=== PATIENT | female | born 1950 | race Caucasian/White ===

== ENCOUNTER 2017-01-12 09:35 | Inpatient (IN) ==
[2017-01-12] MEDS ORDERED: Aspirin 81 MG TAB.CHEW PO ONE (09:44)
--- NOTE | 2017-01-12 09:50 | Emergency Department Note ---
Disposition Clinical Impression: Elevated troponin Chest pain Qualifiers: Chest pain type: unspecified Qualified Code(s): R07.9 - Chest pain, unspecified Disposition: Admitted As Inpatient Condition: Good Referrals: NONE,PCP [Primary Care Provider] - Forms: ED Satisfaction Letter Time of Disposition: 10:26 Chest Pain HPI - General Chief Complaint: ED Chest Pain Stated Complaint: Chest Pain Time Seen by Provider: 01/12/17 09:43 Source: patient Mode of arrival: ambulatory Limitations: no limitations Vital Signs Reviewed: Yes Nursing Notes Reviewed: Yes - History of Present Illness HPI Narrative: Patient presents to emergency room with complaint of chest pain radiating up into the left neck. Denies any other symptoms or complaints. 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 Review of Systems: As Per HPI Constitutional: Denies: fever, chills Cardiovascular: Reports: chest pain. Denies: palpitations, dyspnea on exertion , orthopnea, edema Respiratory: Denies: cough, dyspnea, wheezes, hemoptysis Gastrointestinal: Denies: abdominal pain, nausea, vomiting, diarrhea Genitourinary: Denies: urgency, dysuria Musculoskeletal: Denies: back pain, neck pain Neurological: Denies: headache, weakness Chest Pain PMH - Past Medical History Medical history: Reports: hyperlipidemia, hypertension, thyroid disease Psychiatric history: Reports: depression - Social History Smoking Status: Current every day smoker Alcohol use: Reports: none Drug use: Reports: none Physical Exam - General Limitations: no limitations General appearance: alert - Head Head exam: atraumatic, normocephalic, normal inspection - ENT ENT exam: normal exam, normal oropharynx, mucous membranes moist - Neck Neck exam: Present: normal inspection, full ROM, trachea midline - Chest Chest inspection: Present: normal inspection, symmetric chest wall rise. Absent : tenderness - Respiratory Respiratory exam: Present: normal lung sounds bilaterally - Cardiovascular Cardiovascular exam: Present: regular rate, normal rhythm, normal heart sounds - Abdominal Exam Abdominal exam: Present: soft, Non-Tender, normal bowel sounds. Absent: tenderness, distention, guarding, rebound, rigidity - Extremities Exam Extremities exam: Present: normal inspection, full ROM, normal capillary refill. Absent: tenderness - Back Exam Back exam: Present: normal inspection, full ROM. Absent: tenderness - Skin Skin exam: Present: warm, dry, intact, normal color Course Course Narrative: Patient seen and examined the time of arrival. See history of present illness. 66-year-old female presents with chest pain yesterday that went away and came on again last night has been persistent since then. She has risk factors including hypertension hyperlipidemia and thyroid disease. She also has concerning symptoms with midsternal chest pain radiating up into the neck. Vital signs on presentation show a normal heart rate blood pressure is significantly elevated. Physical exam is otherwise benign. Head is atraumatic pupils are equal round and reactive to light. Patient has no pain with movement of the neck oropharynx is patent is midline she has mild cervical lymphadenopathy. Nontender and mobile. Thyroid is not palpable on exam. Lungs are clear heart is regular abdomen soft nontender nondistended. She has no signs of pitting edema or swelling in the lower extremities. She follows commands appropriately and moves all fours extremities with purpose shows no acute signs of neurologic deficit. Patient is otherwise in no distress showing no acute signs of decompensation. Discussed in detail the patient's blood pressure as well as my recommendation for cardiac evaluation including EKG chest x-ray troponin laboratory workup control the blood pressure with aspirin and nitroglycerin and then most likely admission to hospital because of elevated blood pressure and symptom history. Patient understands this is comfortable with the plan. We will continue monitor history course is completed. We will discuss intervention and disposition. Patient does follow up with the automatic corn grinder operator but has not had a cardiac catheterization or stent completed in the past. - Reevaluation(s) Reevaluation #1: Patient was provided one nitroglycerin here. Her blood pressure came up to 175/ 111. Her troponin was called to the spinal abdomen is 2.36 here today. No comparable studies to review this to this time. I again reviewed the EKG showing no acute signs of ST segment elevation or depression there is no T-wave inversions. She does have possible LVH at this time. Morphology otherwise seems to be consistent with what is myocardial infarction most likely yesterday. She has Q waves in the inferior leads at this time. Disposition will be admission to hospital.. Reviewed with the on-call physician Dr. mckeon. We reviewed the medical history intervention and consultation with the automatic corn grinder operator. No other recommendations this time. Patient restarted on heparin drip. Chest pain is almost completely resolved with one nitroglycerin blood pressure is down to 175/111. Symptoms of almost completely resolved except for light pressure. Patient otherwise is in no distress. Rotation was placed out to Dr. Guaman on-call automatic corn grinder operator. No other recommendations except for admission for cardiac evaluation. Cardiology is at the bedside at this time evaluating the patient hospitalIST. Time: 10:40 Vital Signs Temperature 98 F 01/12/17 09:36 Pulse Rate 97 01/12/17 09:36 Respiratory Rate 18 01/12/17 09:36 Blood Pressure 213/126 01/12/17 09:36 O2 Sat by Pulse Oximetry 93 01/12/17 09:36 Temperature 98 F 01/12/17 09:36 Pulse Rate 94 01/12/17 10:36 Respiratory Rate 18 01/12/17 10:36 Blood Pressure 178/125 01/12/17 10:36 O2 Sat by Pulse Oximetry 97 01/12/17 10:36 Oxygen Delivery Oxygen Delivery Room Air Chest Pain - MDM Narrative Medical decision making narrative: Chest pain, hypertension - Medical Records Medical records reviewed: Yes I reviewed the patient's medical records. - Lab Data Lab results reviewed: Yes I reviewed the patient's lab results. Result diagrams: 01/12/17 08:52 01/12/17 08:52 Lab Results 01/12/17 01/12/17 01/12/17 Range/Units 08:52 08:52 08:52 WBC (4.3-11.1) K/mcL RBC (3.82-4.97) M/mcL Hgb (11.5-15.4) g/dL Hct (35.3-44.9) % MCV (83.0-100.0) fL MCH (28.0-33.3) pg MCHC (31.6-35.5) g/dL RDW (11.5-14.5) % Plt Count (140-400) K/mcL MPV (9.4-12.4) fL Immature Gran % (0-4) % Seg Neutrophils % % Lymphocytes % % Monocytes % % Eosinophils % % Basophils % % Neutrophils # (1.6-8.9) K/mcL Lymphocytes # (0.6-4.6) K/mcL Monocytes # (0.0-1.3) K/mcL Eosinophils # (0.0-0.6) K/mcL Basophils # (0.0-0.2) K/mcL PT 11.1 (9.4-12.1) Seconds INR 1.0 APTT 32.5 (26.0-36.0) Seconds Sodium 140 (136-145) mEq/L Potassium 3.8 (3.5-4.5) mEq/L Chloride 102 (98-109) mEq/L Carbon Dioxide 29 (19-29) mEq/L BUN 6 L (7-20) mg/dL Creatinine 0.71 (0.57-1.11) mg/dL Est GFR ( Amer) > 60 (> 60) Est GFR (Non-Af Amer) > 60 (> 60) BUN/Creatinine Ratio 8 (6-26) Glucose 96 (70-99) mg/dL Calculated Osmolality 287 (280-300) Calcium 10.0 (8.6-10.8) mg/dL Total Bilirubin 0.4 (0.2-1.2) mg/dL Direct Bilirubin 0.2 (0.0-0.5) mg/dL Indirect Bilirubin 0.2 (0.0-1.2) mg/dL AST 43 H (5-34) Units/L ALT 22 (0-55) Units/L Alkaline Phosphatase 90 (38-126) Units/L Troponin I (0-0.03) ng/mL B-Natriuretic Peptide 123 H (0-100) pg/mL Serum Total Protein 8.6 H (6.0-8.3) g/dL Albumin 4.3 (3.5-5.0) g/dL Globulin 4.3 H (2.4-3.5) g/dL Albumin/Globulin Ratio 1.0 L (1.1-2.2) 01/12/17 01/12/17 Range/Units 08:52 08:52 WBC 7.8 (4.3-11.1) K/mcL RBC 5.09 H (3.82-4.97) M/mcL Hgb 15.5 H (11.5-15.4) g/dL Hct 46.5 H (35.3-44.9) % MCV 91.4 (83.0-100.0) fL MCH 30.5 (28.0-33.3) pg MCHC 33.3 (31.6-35.5) g/dL RDW 12.3 (11.5-14.5) % Plt Count 273 (140-400) K/mcL MPV 9.0 L (9.4-12.4) fL Immature Gran % 0.4 (0-4) % Seg Neutrophils % 68.2 % Lymphocytes % 24.0 % Monocytes % 6.1 % Eosinophils % 0.9 % Basophils % 0.4 % Neutrophils # 5.3 (1.6-8.9) K/mcL Lymphocytes # 1.9 (0.6-4.6) K/mcL Monocytes # 0.5 (0.0-1.3) K/mcL Eosinophils # 0.1 (0.0-0.6) K/mcL Basophils # 0.0 (0.0-0.2) K/mcL PT (9.4-12.1) Seconds INR APTT (26.0-36.0) Seconds Sodium (136-145) mEq/L Potassium (3.5-4.5) mEq/L Chloride (98-109) mEq/L Carbon Dioxide (19-29) mEq/L BUN (7-20) mg/dL Creatinine (0.57-1.11) mg/dL Est GFR ( Amer) (> 60) Est GFR (Non-Af Amer) (> 60) BUN/Creatinine Ratio (6-26) Glucose (70-99) mg/dL Calculated Osmolality (280-300) Calcium (8.6-10.8) mg/dL Total Bilirubin (0.2-1.2) mg/dL Direct Bilirubin (0.0-0.5) mg/dL Indirect Bilirubin (0.0-1.2) mg/dL AST (5-34) Units/L ALT (0-55) Units/L Alkaline Phosphatase (38-126) Units/L Troponin I 2.36 H* (0-0.03) ng/mL B-Natriuretic Peptide (0-100) pg/mL Serum Total Protein (6.0-8.3) g/dL Albumin (3.5-5.0) g/dL Globulin (2.4-3.5) g/dL Albumin/Globulin Ratio (1.1-2.2) - Radiology Data Radiology results reviewed: Yes I reviewed the patient's radiology results. - EKG Data EKG attestation: Yes I reviewed and interpreted this EKG. Heart Score - Score History: Moderately Suspicious EKG: Normal Age: 45-65 Risk Factors: Equal/Greater than 3 risk factor or history of atherosclerotic disease Troponin: Greater than 3x normal limit HEART Score Total: 6 Critical Care Time Critical Care Time: Yes Total Critical Care Time: 35 Attestation: Critical care performed: Time is exclusive of separately billable procedures. Time includes: direct patient care, patient reassessment, coordination of patient care, interpretation of data (laboratory data, radiology data, and respiratory data), review of patient's medical records, medical consultation and documentation of patient care. Procedures included in critical care time: Procedures excluded from critical care time:
[2017-01-12 09:56] LABS: Basophils % 0.4 %; Eosinophils # 0.1 K/mcL (0.0-0.6); Eosinophils % 0.9 %; Hematocrit 46.5 % (35.3-44.9); Hemoglobin 15.5 g/dL (11.5-15.4); Immature Granulocytes % 0.4 % (0-4); Lymphocytes # 1.9 K/mcL (0.6-4.6); Mean Corpuscular HGB Conc 33.3 g/dL (31.6-35.5); Mean Corpuscular Hemoglobin 30.5 pg (28.0-33.3); Mean Corpuscular Volume 91.4 fL (83.0-100.0); Monocytes # 0.5 K/mcL (0.0-1.3); Monocytes % 6.1 %; Neutrophils # 5.3 K/mcL (1.6-8.9); Platelet Count 273 K/mcL (140-400); Red Blood Count 5.09 M/mcL (3.82-4.97); Red Cell Distribution Width 12.3 % (11.5-14.5); Segmented Neutrophils % 68.2 %
[2017-01-12] MEDS: Nitroglycerin 0.4 MG TAB.SUBL SL ONE ×2 (09:57→10:33)
[2017-01-12 10:06] LABS: Prothrombin Time 11.1 Seconds (9.4-12.1)
[2017-01-12 10:09] LABS: Activated Partial Thrombo Time 32.5 Seconds (26.0-36.0)
[2017-01-12 10:12] LABS: Alanine Aminotransferase 22 Units/L (0-55); Albumin 4.3 g/dL (3.5-5.0); Alkaline Phosphatase 90 Units/L (38-126); Aspartate Amino Transferase 43 Units/L (5-34); BUN/Creatinine Ratio 8 (6-26); Bilirubin,Direct 0.2 mg/dL (0.0-0.5); Bilirubin,Indirect 0.2 mg/dL (0.0-1.2); Bilirubin,Total 0.4 mg/dL (0.2-1.2); Blood Urea Nitrogen 6 mg/dL (7-20); Carbon Dioxide 29 mEq/L (19-29); Chloride 102 mEq/L (98-109); Globulin 4.3 g/dL (2.4-3.5); Glucose 96 mg/dL (70-99); Osmolality,Calculated 287 (280-300); Potassium 3.8 mEq/L (3.5-4.5); Sodium 140 mEq/L (136-145); Total Protein 8.6 g/dL (6.0-8.3); eGFR For African Americans > 60 (> 60); eGFR For Non-African Americans > 60 (> 60)
[2017-01-12] MEDS ORDERED: *HR* Heparin 5,000 UNIT/ML VIAL IVP ONE ×2 (10:19→10:43)
[2017-01-12] MEDS ORDERED: *HR* Heparin 5,000 UNIT/ML VIAL IVP PRN ×3 (10:19→10:43)
[2017-01-12] MEDS ORDERED: Heparin 25,000 UNIT/500 ML D5W 25,000 UNIT/500 ML MLS IVC SCH (10:30)
[2017-01-12] MEDS ORDERED: Naloxone 0.4 MG/ML INJ IVP PRN ×2 (10:43→10:49)
[2017-01-12] MEDS ORDERED: Ondansetron 4 MG/2 ML VIAL IVP PRN (10:43)
[2017-01-12] MEDS ORDERED: Nitroglycerin 0.4 MG TAB.SUBL SL PRN (10:43)
[2017-01-12] MEDS ORDERED: Acetaminophen 325 MG TABLET PO PRN (10:49)
[2017-01-12] MEDS ORDERED: Ipratropium/Albuterol Neb 3 ML IH PRN (10:50)
--- NOTE | 2017-01-12 10:53 | Event Note ---
Date of Encounter: 01/12/17 Time of Encounter: 10:51 1. Non-STEMI Continue aspirin, start metoprolol, nitro paste, morphine as needed, Lipitor Heparin drip, consider loading with Plavix if cardiology is in agreement follow troponins, telemetry Nothing by mouth for possible cardiac catheterization, may resume diet is cardiac catheterization is not scheduled for today 2. Hyperlipidemia 3. Accelerated hypertension in the 200s Start losartan, amlodipine, metoprolol, may use hydralazine IV as needed 4. Tobacco abuse. Smoking cessation counseling given for 5 minutes. Nicotine patch Omeprazole for GI prophylaxis and heparin drip for DVT prophylaxis. Patient will be admitted as inpatient. Expected to stay more than 2 midnights. Full code. Time spent on this admission 40 minutes. H&P to be completed by ANGELICA Collazo
[2017-01-12] MEDS ORDERED: *HR* Ticagrelor 90 MG TABLET PO ONE (10:54)
--- NOTE | 2017-01-12 11:04 | Cardiology Consult Note ---
Date of Encounter: 01/12/17 Time of Encounter: 10:58 Assessment and Plan (1) NSTEMI (non-ST elevated myocardial infarction) Current Visit: Yes Status: Acute Initial troponin 2.36. Trend for total of 3. CXR negative. Chest pain started yesterday, initially had brief episode at work that subsided , then recurred last night, left sided and achy that radiated up neck and across back/shoulder blades. Pain began decreasing around 8am, then further decreased to 1/10 after receiving 2 nitro in ED. Risk factors for CAD include HTN, HLD, tobacco abuse and family hx with half brother having from [place] in his 50s. Will check echo to evaluate structure and function. Recommend LHC. R/B/A discussed. Pt agrees to proceed with LHC today. Discussed with interventionalist, Dr. Villarreal. Will load with Brilinta 180mg now. On heparin gtt. BB and statin started. Check lipid panel in AM. (2) Tobacco abuse Current Visit: Yes Status: Chronic <1PPD since age 21. Smoking cessation counseling given. (3) Accelerated hypertension Current Visit: Yes Status: Acute BP 213/126 on presentation. 195/126 at bedside. Give dose of IV Hydralazine 10mg now. Oral antihypertensives started as well. Continue to monitor. Discussion w patient/family: The assessment and plan as outlined above was discussed with the patient and/or family members who expressed understanding and agreement. All questions were answered. Thank you for involving us in the care of your patient. Please call with any questions. I will discuss all the above with Dr. Pete Waters and make changes as necessary. History of Present Illness Consult date: 01/12/17 Requesting physician: Anirudh Rodríguez Consult reason: NSTEMI Chief complaint: Chest pain History of present illness: Ms. Oconnor is a 66 year old female with PMH of HTN, HLD, tobacco abuse, possible CVA hx reported in 1999 that presented to ED with chief complaint of chest pain. 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 Later yesterday evening once home, she experienced recurrent chest pain described as dull and achy that radiated to her neck and into her back across shoulder blades. She reports the pain was constant, started to become less intense around 8AM this morning, then improved with 2 nitro in the ED and is currently rated 1/10. BP 213/126 on presentation, 195/126 at bedside currently. She denies dyspnea or lower extremity edema. She denies prior cardiac hx. Reports having a stress test and echo many years ago. Reports her half brother from [place] in his 50s. She has smoked <1PPD since age 21. Troponin 2.36. Cardiology consulted for NSTEMI. Of note, pt has not seen PCP regularly or recently. Past Med Surg Social Fam HX - Past Medical History Medical history: CVA, hyperlipidemia, hypertension, thyroid disease Psychiatric history: depression - Social History Smoking Status: Current every day smoker Smokeless Tobacco Status: No Alcohol use: none Drug use: none - Family History Brother Age at : 50 Cause of : [place] Medications and Allergies Aspirin [Lo-Dose Aspirin EC] 81 mg PO DAILY 01/12/17 [History] Allergies No Known Allergies Allergy (Verified 01/12/17 09:41) All Systems Review: A 10-system review of systems was performed and is negative for pertinent findings except as documented above in the HPI. - Cardiovascular Cardiovascular: as per HPI, chest pain at rest, chest pain with exertion, radiating jaw, neck or arm pain Physical Examination Vital Signs Temp Pulse Resp BP Pulse Ox 01/12/17 10:36 94 18 178/125 97 01/12/17 10:24 87 18 175/112 96 01/12/17 09:36 98 F 97 18 213/126 93 Intake and Output 01/11/17 01/12/17 01/12/17 23:59 07:59 15:59 Other: Weight 72.756 kg Patient Weight 01/12/17 23:59 Weight 72.756 kg General: Conversant, No Apparent Distress HEENT: Atraumatic, Normocephaly, Mucus Membranes Moist Neck: No JVD, Normal carotid pulses Cardiac: Reg Rate and Rhythm, Normal S1 and S2, No Murmur Lungs: Normal Breath Sounds, No Wheeze, Rales, Rhonchi Neuro: Alert and responsive, No focal deficits noted Abdomen: Soft, Non-Tender Skin: No rashes noted on visualized skin Musculoskeletal: No Chest Wall Tenderness Extremities: No Clubbing, No Cyanosis, No Edema, Normal Pulses Results 01/12/17 08:52 01/12/17 08:52 Short CBC 01/12/17 Range/Units 08:52 WBC 7.8 (4.3-11.1) K/mcL Hgb 15.5 H (11.5-15.4) g/dL Hct 46.5 H (35.3-44.9) % Plt Count 273 (140-400) K/mcL Neutrophils # 5.3 (1.6-8.9) K/mcL BMP 01/12/17 Range/Units 08:52 Sodium 140 (136-145) mEq/L Potassium 3.8 (3.5-4.5) mEq/L Chloride 102 (98-109) mEq/L Carbon Dioxide 29 (19-29) mEq/L BUN 6 L (7-20) mg/dL Creatinine 0.71 (0.57-1.11) mg/dL Glucose 96 (70-99) mg/dL Calcium 10.0 (8.6-10.8) mg/dL Cardiac Enzymes 01/12/17 Range/Units 08:52 Troponin I 2.36 H* (0-0.03) ng/mL Liver Function 01/12/17 Range/Units 08:52 Total Bilirubin 0.4 (0.2-1.2) mg/dL Direct Bilirubin 0.2 (0.0-0.5) mg/dL AST 43 H (5-34) Units/L ALT 22 (0-55) Units/L Alkaline Phosphatase 90 (38-126) Units/L Albumin 4.3 (3.5-5.0) g/dL Impressions Chest X-Ray 01/12/17 09:44 IMPRESSION: No acute cardiopulmonary disease. D/ / Mychal Valenzuela MD / Mychal Valenzuela MD Interpreting Provider: Mychal Valenzuela MD Active Medications Acetaminophen (Tylenol) 500 mg PO Q6HR PRN PRN Reason: Mild Pain Stop: 07/14/17 10:44 Acetaminophen (Tylenol) 650 mg PO Q6HR PRN PRN Reason: Mild Pain (1-3) Stop: 07/14/17 10:50 Albuterol/Ipratropium (Duoneb) 3 ml IH [id number] PRN; Protocol PRN Reason: Shortness Of Breath/Wheezing Stop: 07/14/17 10:51 Amlodipine Besylate (Norvasc) 10 mg PO DAILY ADA PRN Reason: Protocol Stop: 07/14/17 11:01 Aspirin (Aspirin) 324 mg PO DAILY [facility] Stop: 07/14/17 10:46 Atorvastatin Calcium (Lipitor) 80 mg PO HS [facility] Stop: 07/14/17 21:01 Heparin Sodium (Porcine) (Heparin) 4,000 unit IVP Q6HR PRN PRN Reason: SEE COMMENTS Stop: 07/14/17 10:20 Heparin Sodium (Porcine) (Heparin) 2,000 unit IVP Q6H PRN PRN Reason: SEE COMMENTS Stop: 07/14/17 10:20 Heparin Sodium (Porcine) (Heparin) 4,000 unit IVP Q6HR PRN PRN Reason: SEE COMMENTS Stop: 07/14/17 10:44 Heparin Sodium (Porcine) (Heparin) 2,000 unit IVP Q6H PRN PRN Reason: SEE COMMENTS Stop: 07/14/17 10:44 Hydralazine HCl (Hydralazine) 20 mg IVP Q6HR PRN PRN Reason: Hypertension Stop: 07/14/17 10:55 Heparin Sodium/Dextrose (Heparin 25,000 Unit/500 Ml D5w) 25,000 unit in 500 mls @ 17.461 mls/hr IVC .Q24H ADA; 12 UNIT/KG/HR PRN Reason: Protocol Stop: 07/14/17 10:31 Last Admin: 01/12/17 10:31 Dose: 12 unit/kg/hr, 17.461 mls/hr Sodium Chloride (0.9 % Sodium Chloride) 1,000 mls @ 60 mls/hr IVC .[id number] ADA Stop: 07/14/17 10:46 Heparin Sodium/Dextrose (Heparin 25,000 Unit/500 Ml D5w) 25,000 unit in 500 mls @ 17.461 mls/hr IVC .Q24H ADA; 12 UNIT/KG/HR PRN Reason: Protocol Stop: 07/14/17 10:46 Losartan Potassium (Cozaar) 25 mg PO DAILY [facility] Stop: 07/14/17 10:46 Metoprolol Tartrate (Lopressor) 25 mg PO BID [facility] Stop: 07/14/17 10:46 Morphine Sulfate (Morphine Sulfate) 4 mg IVP Q3H PRN PRN Reason: Severe Pain (7-10) Stop: 07/14/17 10:44 Naloxone HCl (Narcan) 0.4 mg IVP Q2MIN PRN PRN Reason: Opioid Reversal Stop: 07/14/17 10:44 Naloxone HCl (Narcan) 0.4 mg IVP Q2MIN PRN PRN Reason: Opioid Reversal Stop: 07/14/17 10:50 Nicotine (Nicoderm) 21 mg TD DAILY [facility] PRN Reason: Protocol Stop: 07/14/17 10:46 Nitroglycerin (Nitroglycerin) 0.5 inch TP Q6HNTG ADA Stop: 07/14/17 12:01 Nitroglycerin (Nitroglycerin) 0.4 mg SL Q5MIN PRN PRN Reason: Chest Pain Stop: 07/14/17 10:44 Omeprazole (Prilosec) 20 mg PO DAILY@0630 [facility] PRN Reason: Protocol Stop: 07/15/17 06:31 Ondansetron HCl (Zofran) 4 mg IVP Q8HR PRN PRN Reason: Nausea And Vomiting Stop: 07/14/17 10:44 Ticagrelor (Brilinta) 180 mg PO NOW ONE Stop: 01/12/17 10:55 - EKG Interpretation EKG results cardiology: personally reviewed (SR) Consult Discharge Plan - Plan Referrals: NONE,PCP [Primary Care Provider] -
--- NOTE | 2017-01-12 11:21 | Internal Med History&Physical ---
<Lj Collazo - Last Filed: 01/12/17 11:58> Date of Encounter: 01/12/17 Time of Encounter: 10:15 Assessment and Plan (1) NSTEMI (non-ST elevated myocardial infarction) Current visit: Yes Status: Acute Patient presents with chest pain and abnormal EKG upon admission to the ED. Patient states that she has had stabbing pressure in her left chest that has become progressively worse. States that two rounds of nitroglycerin in the ED helped. Patient denies previous heart attacks but reports a stroke in 1999. Cardiology consulted and will perform a heart catheterization today. Patient to be NPO to prep for the procedure. Patient reports she stopped taking any medications three years ago due to expense. Orders for lipitor, losartan, amlodipine, lopressor, and hydralazine placed while inpatient. Patient to be monitored closely for signs of increasing cardiac/respiratory distress. (2) Accelerated hypertension Current visit: Yes Status: Acute Patient presents with accelerated HTN upon admission to the ED with initial BP of 213/126. BP during examination was 190/127. Patient states that she has a history of HTN but does not take BP at home. Losartan, amlodipine, lopressor, and hydralazine ordered to help control HTN. Patient and vital signs to be monitored. (3) Chest pain Current visit: Yes Status: Acute Patient presents with chief complaint of chest pain that she states started yesterday morning as a pressure with stabbing pain that radiated to her left jaw , left arm, and bilateral shoulder blades. Patient received two nitroglycerin upon admission that she states helped with the pain. Will continue nitroglycerin PRN as well as stair-step pain medications as needed. Qualifiers: Chest pain type: other chest pain Qualified Code(s): R07.89 - Other chest pain; R07.8 - Other chest pain (4) Elevated troponin Current visit: Yes Status: Acute Patient presents with elevated troponin level of 2.36 on admission to the ED. Will trend troponins x2. (5) HLD (hyperlipidemia) Current visit: Yes Status: Chronic Patient presents with history of chronic hyperlipidemia but is unsure of what her current lipid levels are. Lipid panel ordered. Lipitor ordered while inpatient. Qualifiers: Hyperlipidemia type: pure hypercholesterolemia Qualified Code(s): E78.00 - Pure hypercholesterolemia, unspecified; E78.0 - Pure hypercholesterolemia (6) Tobacco abuse Current visit: Yes Status: Chronic Patient reports smoking 1/2 PPD for the past 45 years. Smoking cessation education provided during examination with alternatives for quitting explained to patient who voiced understanding. Nicotine patch ordered while inpatient. (7) DVT prophylaxis Current visit: Yes Status: Acute Patient reports history of stroke in 1999 and is currently experiencing chest pain symptoms. Patient placed on IV heparin drip. Internal Medicine - H&P: HPI Chief complaint: Chest Pain Admitted From: Emergency Dept Plans for Post Hospital Care: Home History of present illness: Mrs. Oconnor is a 66 year old female who presents from the ED with chief complaint of chest pain that she states began yesterday morning and became progressively worse overnight. She states that the pain began with an irregular heart beat/flutter. She describes the chest pain as a pressure with stabbing which came and went earlier in the day and became more constant overnight. She reports the pain radiated to her left jaw, left arm, and across both shoulder blades. She states that the pain went away at approximately 8 a.m. today 1 hour prior to coming to the ED. She also reports nausea with the episodes but no vomiting. Mrs. Oconnor reports having a prior Echo and stress test done but that it has been quite some time ago. Her medical history includes HTN, HLD, thyroid disease, and a reported stroke in 1999. She denies any previous cardiac history. She is currently smoking approximately 1/2 PPD of cigarettes. She denies recent illness, chills, fever, headache, dizziness, changes in vision, abdominal pain, unusual bleeding, SOB, diarrhea, or syncope. Patient's blood pressure on admission to the ED was 213/126 and last BP taken during examination was 190/127. Patient is at high risk for cardiac event based on her current symptoms and risk factors/history of tobacco abuse, HTN, HLD, and reported previous stroke. She is to be placed as inpatient and will be scheduled for a heart catheterization as soon as she can be worked in. Cardiology on board and has seen the patient. Patient will be placed on continuous cardiac telemetry. Hydralazine 20 mg ordered for current HTN. Heparin drip initiated in the ED and will be continued. Patient is to be NPO for pending cath and will be monitored closely for signs of increasing cardiac/ respiratory distress. Past Med Surg Social Fam HX - Past Medical History Source: patient Medical history: CVA (Occurred in 1999), hyperlipidemia, hypertension, thyroid disease Psychiatric history: depression - Social History Smoking Status: Current every day smoker Packs per day: 1/2 PPD Smokeless Tobacco Status: No Alcohol use: none Drug use: none Current living situation: Home, With Family Activity Level: Independent ambulation, Very active Recent Out of Country Travel Within the Last 8 Weeks: No Exposure or Possible Exposure to Illness During Travel: No - Family History Brother Race: Family Member Ethnicity: Non- Living Status: Age at : 50 Cause of : [place] Hx Family Cardiac Disorders: Yes ([place]) Father History Unknown: Yes Mother Race: Family Member Ethnicity: Non- Living Status: Age at : 73 Cause of : Stroke Hx Family Cardiac Disorders: Yes (Multiple CVAs) Internal Medicine - H&P: Meds Aspirin [Lo-Dose Aspirin EC] 81 mg PO DAILY 01/12/17 [History] Allergies No Known Allergies Allergy (Verified 01/12/17 09:41) All Systems PM: A 10-system review of systems was performed and is negative for pertinent findings except as documented above in the HPI. - Constitutional Constitutional: no chills, no fever(s), no night sweats - EENT Eyes: no change in vision, no discharge, no pain, no photophobia Ears: no ear discharge, no ear pain, no tinnitus Nose, mouth and throat: no dysphagia, no nasal discharge, no neck pain, no sore throat - Breasts Breasts: as per HPI - Cardiovascular Cardiovascular ROS IM: as per HPI, chest pain - Respiratory Respiratory: no cough, no dyspnea, no wheezing, no excessive phlegm production - Gastrointestinal Gastrointestinal: no abdominal pain, no diarrhea, no hematemesis, no hematochezia, no melena, no nausea, no vomiting - Genitourinary Genitourinary: no change in urinary stream, no dysuria, no flank pain, no hematuria Menstruation: as per HPI - Musculoskeletal Musculoskeletal ROS IM: no numbness, no tingling - Integumentary Integumentary IM: no rash, no unusual bruising - Neurological Neurological ROS: no confusion, no convulsions, no focal weakness, no numbness, no tingling, no tremor(s) - Psychiatric Psychiatric: as per HPI - Endocrine Endocrine IM: as per HPI - Hematologic/Lymphatic Hematologic/Lymphatic: no easy bruising - Allergic/Immunologic Allergic/Immunologic: as per HPI - Constitutional Vitals: Temp Pulse Resp BP Pulse Ox 98 F 94 18 178/125 97 01/12/17 09:36 01/12/17 10:36 01/12/17 10:36 01/12/17 10:36 01/12/17 10:36 General appearance: Present: cooperative, A&O X 3, pleasant, no acute distress, obese, answers questions appropriately - Head Head exam: Present: atraumatic, normocephalic - Eye Eye exam: Present: PERRL, conjuntiva pink, sclera anicteric Pupils: Present: PERRL - ENT ENT exam: Present: normal exam, normal external ear exam - Neck Neck exam general surgery: Present: supple, trachea midline. Absent: lymphadenopathy - Respiratory Respiratory exam: Present: CTAB. Absent: accessory muscle use, rales, rhonchi, wheezes - Cardiovascular Cardiovascular exam: Present: RRR, +S1, +S2. Absent: diastolic murmur, gallop, rubs, systolic murmur - GI/Abdominal GI/Abdominal exam: Present: normal bowel sounds, soft, no peritoneal signs. Absent: distended, tenderness - Rectal Rectal exam: Present: deferred - Additional comments: exam deferred. - Extremities Exam Extremities exam: Present: warm, radial pulses palpable and symetrical. Absent : calf tenderness, cyanotic, pedal edema - Back Exam Back exam: Present: normal inspection - Neurological Exam Neurological exam: Present: CN II-XII intact, oriented X3, no focal deficits. Absent: pronater drift, facial droop, speech deficit - Psychiatric Psychiatric exam: Present: normal affect, normal mood - Skin Skin exam: Present: dry, intact Internal Med - H&P Results - Labs CBC & Chem 7: 01/12/17 08:52 01/12/17 08:52 - Diagnostic Studies Chest x-ray Additional comments: Impressions Chest X-Ray 01/12/17 09:44 IMPRESSION: No acute cardiopulmonary disease. D/ / Mychal Valenzuela MD / Mychal Valenzuela MD Interpreting Provider: Mychal Valenzuela MD <Anirudh Rodríguez H - Last Filed: 01/12/17 12:29> Date of Encounter: 01/12/17 Internal Medicine - H&P: HPI History of present illness: Ms. Oconnor is a 66 year old female All Systems PM: A 10-system review of systems was performed and is negative for pertinent findings except as documented above in the HPI. - Constitutional Vitals: Temp Pulse Resp BP Pulse Ox 98 F 94 18 178/125 97 01/12/17 09:36 01/12/17 10:36 01/12/17 10:36 01/12/17 10:36 01/12/17 10:36 Internal Med - H&P Results - Labs CBC & Chem 7: 01/12/17 08:52 01/12/17 08:52 - Attending Attestation 1. Non-STEMI Continue aspirin, start metoprolol, nitro paste, morphine as needed, Lipitor Heparin drip, load with Brilinta per cardiology follow troponins, telemetry Nothing by mouth for possible cardiac catheterization 2. Hyperlipidemia 3. Accelerated hypertension in the 200s Start losartan, amlodipine, metoprolol, may use hydralazine IV as needed 4. Tobacco abuse. Smoking cessation counseling given for 5 minutes. Nicotine patch Omeprazole for GI prophylaxis and heparin drip for DVT prophylaxis. Patient will be admitted as inpatient. Expected to stay more than 2 midnights. Full code. Time spent on this admission 40 minutes. For this encounter, I have reviewed the [employer] or PA documentation, treatment plan, and medical decision making; and I have had face to face time with this patient.
[2017-01-12] MEDS ORDERED: 0.9 % Sodium Chloride 1,000 ML ONE ×2 (12:06→12:21)
[2017-01-12] MEDS ORDERED: Heparin 1,000 UNITS/500 mL NS 500 ML ONE ×2 (12:07)
[2017-01-12] MEDS ORDERED: *HR* Heparin 10,000 UNIT/10 ML VIAL ONE (12:07)
[2017-01-12] MEDS ORDERED: Nitroglycerin 1,000 MCG/10 ML VIAL IV ONE (12:13)
[2017-01-12] MEDS ORDERED: *HR* Midazolam HCl 2 MG/2 ML VIAL ONE (12:35)
--- NOTE | 2017-01-12 12:41 | Pre-Sedation Evaluation ---
Pre-sedation evaluation - Pre-sedation checklist Recent Vitals: Last Vital Signs Temp 98 F 01/12/17 09:36 Pulse 94 01/12/17 10:36 Resp 18 01/12/17 12:19 BP 165/83 01/12/17 12:19 Pulse Ox 97 01/12/17 10:36 H&P (including ROS) documented in medical record: Yes Previous reaction to sedatives/anesthetics: No Dietary Status: No solid food in preceding 4 hrs and no liquid in preceding 2 hrs Airway Assessment: Patient can open mouth completely, TMJ function normal, Neck with adequate range of motion Dentition: full dentition Possible difficult airway: No ASA Classification *see protocol: CLASS III-Severe systemic disease Plan of Care: Pt appropriate candidate for procedure/moderate/conscious sedation
[2017-01-12] MEDS ORDERED: *HR* Phenylephrine 10 MG/ML VIAL IVC ONE (14:21)
[2017-01-12] MEDS ORDERED: *HR* Heparin 10,000 UNIT/10 ML VIAL IR ONE (14:21)
[2017-01-12] MEDS ORDERED: *HR* Magnesium Sulfate 2 GM/50 ML PIGGYBACK IVPB ONE (14:21)
[2017-01-12] MEDS ORDERED: Sodium Bicarbonate 50 MEQ/50 ML VIAL IVC ONE (14:21)
[2017-01-12] MEDS ORDERED: Albumin Human 25% 25 GM/100 ML IV.SOLN IV ONE (14:21)
[2017-01-12] MEDS ORDERED: Mannitol 25% vial 12.5 GM/50 ML VIAL IVP ONE (14:21)
[2017-01-12] MEDS ORDERED: Tranexamic Acid 1,000 MG/10 ML VIAL IV ONE (14:21)
[2017-01-12] MEDS ORDERED: Lidocaine 2% Syringe 100 MG/5 ML IV ONE (14:21)
--- NOTE | 2017-01-12 14:23 | Invasive Diagnostic Lab Proc ---
Name: Le Oconnor Date of Study: 01/12/2017 Date: 1950 Ht: 59.1in Medical Record#: [id number] Age: 66 Wt: 160.28lb Gender: Female BSA: 1.68 Order #: [id number] BMI: 32.31 Physicians Procedure Physician: Margarita Waters MD, [facility] Referring MD: Referring MD: Staff Name Position Time In Duogie Bell RT (R) Scrub 12:34 PM Blanca Zhao RN Monitor 12:35 PM Rowena Beltrán RN Chief Construction Inspector 12:35 PM Laura Rivas RN Chief Construction Inspector 12:35 PM Dea Alicea RN Monitor 12:45 PM Indications Indication Non-Stemi Procedures Performed Procedure L HRT ARTERY/VENTRICLE ANGIO Pre-Procedure Checklist Informed consent is complete signed and on chart. H&P is on chart. ID band is on and ID verified with patient. Patient NPO for procedure The procedure was described for the patient and questions were answered. Blood Pressure: 177/100 ECG is on chart. Rhythm: NSR Plan of Care Patient will tolerate the procedure without complications. Adequate level of comfort will be maintained. Hemodynamics will remain stable Patient will recover from procedure without complications. Respiratory function will be maintained. Cardiac rhythm will remain stable. Patient temperature will be maintained. Patient and/or family have verbalized understanding of the procedure. Patient Education Chief Complaint/Reason for Test: Cardiac Cath Developmental Category: Adult (18-64 years) Developmentally Appropriate for Age: Yes Learning Barriers: None Education Needs: Procedure Education Method: Verbal Information Taught: Cardiac Cath Educational Evaluation: Able to repeat information Intravenous Access Time IV Size Location DC'd Fluid/Drip Rate Units RN 12:32 PM 20g 1 1/4" Patent On Arrival Lt Hand 12:32 PM 20g 1 1/4" Patent On Arrival Lt Antecubital 0.9NaCl 25 ml/hr Allergies No Known Allergies Vital Signs Time BP (mmHg) HR (bpm) O2 Sat. RR (bpm) LOC 12:42 PM 177 / 100 97 98 % 9 5 = Fully awake and oriented or at pre-proc level 12:42 PM / % 4 = Oriented but drowsy 12:38 PM 177 / 100 97 98 % 9 12:42 PM 157 / 94 93 95 % 26 12:47 PM 167 / 81 96 96 % 37 12:52 PM 137 / 92 85 96 % 18 12:58 PM 164 / 92 87 95 % 24 01:02 PM 169 / 97 90 96 % 20 01:07 PM 164 / 93 87 97 % 12:57 PM / % 5 = Fully awake and oriented or at pre-proc level 01:25 PM 189 / 106 94 93 % 16 5 = Fully awake and oriented or at pre-proc level 01:18 PM 180 / 94 94 92 % 15 5 = Fully awake and oriented or at pre-proc level 01:26 PM 169 / 92 96 93 % 16 5 = Fully awake and oriented or at pre-proc level 01:44 PM 130 / 74 89 94 % 15 5 = Fully awake and oriented or at pre-proc level Procedural Medications Time Medication Dose Units Method Given By 12:38 PM Versed 2 mg Intravenous Laura Rivas RN 12:40 PM Oxygen 2 L/min nasal cannula Laura Rivas RN 12:50 PM Lidocaine 2% 10 ml Subcutaneous Margarita Waters MD, FACC 01:28 PM Hydralazine 10 mg Intravenous Dea Alicea RN ASA Classification: CLASS II- Mild systemic disease (i.e. well-controlled diabetes, hypertension, asthma, cigarette smoking) Collette Score Preprocedure Postprocedure Activity 2- Moves 4 extremities sustained head lift Activity 2- Moves 4 extremities sustained head lift Circulation 2- SBP +/= 20 points of pre-anesthetic level Circulation 2- SBP +/= 20 points of pre-anesthetic level Consciousness 2- Awake and alert oriented x 3 Consciousness 2- Awake and alert oriented x 3 O2 Saturation 2- Able to maintain O2 satruation of 92% on room air O2 Saturation 2- Able to maintain O2 satruation of 92% on room air Respiratory 2- Able to deep breathe and cough well Respiratory 2- Able to deep breathe and cough well Total Score 10 Total Score 10 Contrast Agent: Isovue Diagnostic Contrast: 70 ml Total Contrast: 70 ml Fluoro Dose: 158 mGy Activated Clotting Time Time Seconds to Clot 12:56 PM 176 Procedure Log Time Note Enter By 12:34 PM Pt arrived to recyclable materials sorter 2 at 12:34 ejohnson 12:35 PM Dougie Bell RT (R) Position: Scrub Time in: 12:34 ejohnson 12:35 PM Blanca Zhao RN Position: Chief Construction Inspector Time in: 12:35 ejohnson 12:35 PM Rowena Beltrán RN Time in: 12:35 ejohnson 12:35 PM Laura Rivas RN Position: Chief Construction Inspector Time in: 12:35 ejohnson 12:35 PM Patient charges- Angio tray pack, Navilyst 3mm J, Pulse Oximetry and ACIST tubing and transducer ejohnson 12:35 PM Case Delayed No ejohnson 12:35 PM Physician arrived 12:35 ejohnson 12:35 PM ASA Class CLASS II- Mild systemic disease (i.e. well-controlled diabetes, hypertension, asthma, cigarette smoking) ejohnson 12:35 PM Meet and greet completed ejohnson 12:35 PM Sign in performed according to hospital policy. ejohnson 12:35 PM Procedure start 12:35 ejohnson 12:35 PM CathStat 12:35 PM Vitals capture started with the following parameters, Patient=Adult, Interval=5 min, Initial Rozzaatd=947 mmHg, Deflation Rate=5 mmHg, Cuff placed on Right Arm 12:36 PM Vitals capture started with the following parameters, Patient=Adult, Interval=5 min, Initial Ktctxiun=158 mmHg, Deflation Rate=5 mmHg, Cuff placed on Right Arm 12:38 PM HR=97 bpm, HJMP=076/100 mmhg, SpO2=98.0 %, Resp=9 B/min, Comment=NSR 12:39 PM Time: 12:38 Versed 2 mg Intravenous Given by Laura Rivas RN [facility] 12:39 PM Recorded ECG: HR=89 Condition=Condition 1 12:40 PM Time: 12:40 Oxygen on at 2 L/min per nasal cannula by Laura Rivas RN [facility] 12:40 PM Hair removed from procedure site in holding area using clippers. Bilateral groin prepped with Chloraprep by Dougie Bell RT (R), safety strap applied then patient was draped. Skin intact. ejohon 12:42 PM Time: 12:42 Patient comfortable and pain free: Yes [facility] :42 PM Time: 12:42LOC: 5 = Fully awake and oriented or at pre-proc level [facility] 12:42 PM HR=93 bpm, LYTT=483/94 mmhg, SpO2=95.0 %, Resp=26 B/min, Comment=NSR 12:42 PM Pressure channel 1 zero failed. 12:43 PM Pressure channel 1 zeroed. 12:45 PM Dea Alicea RN Position: Monitor Time in: 12:45 [email or web address] 12:45 PM Pressure channel 2 zeroed. 12:47 PM HR=96 bpm, YHOF=930/81 mmhg, SpO2=96.0 %, Resp=37 B/min, Comment=NSR 12:50 PM Time out performed according to hospital policy [facility] 12:50 PM Clinical Presentation: Non-STEMI [facility] 12:52 PM Time: 12:50 10 ml Lidocaine 2% to right groin Subcutaneous Given by Margarita Waters MD, [facility] 12:52 PM HR=85 bpm, PAPQ=198/92 mmhg, SpO2=96.0 %, Resp=18 B/min, Comment=NSR 12:52 PM Access obtained by percutaneous puncture. 6Fr 10cm Terumo [place] sheath placed in right Femoral artery. [id number] [facility] 12:53 PM 0.035 145cm Navilyst 3mmJ wire [id number] [facility] 12:53 PM 5Fr FR 4 catheter inserted over the wire [facility] 12:54 PM Recorded Pressure: LV, II=730, Condition=Condition 1 (Left Ventricle) LV 162/4/25 12:55 PM Catheter selectively placed in left [facility] 12:55 PM Bolus angiogram of left Ventricle complete: hand injected [facility] 12:55 PM Recorded Pressure: LV, Ao, HR=90, Condition=Condition 1 (Left Ventricle) LV 187/-6/2, (Aorta) Ao 164/88/120 12:56 PM At 12:56 the ACT was 176 seconds. [facility] 12:56 PM RCA angiography performed in multiple views. [facility] 12:57 PM Time: 12:42 Patient comfortable and pain free: Yes [facility] 12:57 PM Time: 12:42LOC: 4 = Oriented but drowsy [facility] 12:57 PM Catheter removed [facility] 12:57 PM 5Fr FL 4 catheter inserted over the wire [facility] 12:58 PM LCA angiography performed in multiple views. [facility] 12:58 PM Recorded Pressure: Ao, HR=86, Condition=Condition 1 (Aorta) Ao 135/68/94 12:58 PM HR=87 bpm, MWEH=299/92 mmhg, SpO2=95.0 %, Resp=24 B/min, Comment=NSR 12:59 PM Catheter removed lparsley 01:02 PM HR=90 bpm, SWFN=349/97 mmhg, SpO2=96.0 %, Resp=20 B/min, Comment=NSR 01:05 PM Coronary Dominance: Left [email or web address] 01:06 PM Lesion found in Mid RCA. Pre Stenosis: 90 [email or web address] 01:06 PM Lesion found in Proximal LAD. Pre Stenosis: 80 [email or web address] 01:06 PM Lesion found in Mid LAD. Pre Stenosis: 90 [email or web address] 01:06 PM Lesion found in Proximal Circumflex. Pre Stenosis: 80 [email or web address] 01:07 PM Proximal Left Anterior Descending Coronary Artery with 80% stenosis. lparsley 01:07 PM Mid/Distal Left Anterior Descending Coronary Artery and diagonal branches with 90% stenosis. lparsley 01:07 PM HR=87 bpm, PSUU=705/93 mmhg, SpO2=97.0 %, Comment=NSR 01:07 PM Right Coronary, Right Posterior Descending Arteries with Right Posterolateral and Acute Marginal branches with 900 % stenosis. lparsley 01:08 PM Circumflex, Obtuse Marginal, Left Posterior Descending, and Left Posterolateral Coronary Arteries with 80 % stenosis. [facility] :08 PM Procedure completed at 13:08 [facility] :09 PM Sign out completed: Radiation Dose 157.89 mGy Fluoro Time: 1.7 Isovue 370 - 200ml contrast 70 ml given by Margarita Waters MD, [facility]. Complications: NoneCardiac Rehab Consult needed: NoConfirmed administered medications: Yes [facility] : PM Isovue 370 - 200ml,1 Bottle(s) used. [facility] : PM Sheath left in place to be pulled on floor/holding areaV+Pad [facility] :09 PM Post ECG NSR [facility]09 PM Post Blood Pressure 164/93 [facility] : PM 13:09 Post Pulses Bilateral DP & PT 2+ [facility] :09 PM Information taught Cardiac Cath and V+ Pad [facility] : PM Education needs Procedure, Plan of Care, and Safe & Effective Use of Medications [facility] : PM Learning barriers :None [facility] 01:09 PM Education Methods Verbal [facility] 01:09 PM Education evaluation Able to repeat information [facility] 01:10 PM Site status No bleeding/hematoma - Rt Groin as reported by Dougie Bell RT (R) at 13:09 [facility] 01:10 PM Opsite applied [facility] 01:12 PM Report given to Jon OLVERA Pt taken to Holding room Room #12. 13:11 [email or web address] 01:12 PM Plavix, Effient or Brilinta given No [email or web address] 01:12 PM Time: 12:57LOC: 5 = Fully awake and oriented or at pre-proc level [facility] 01:12 PM Time: 12:57 Patient comfortable and pain free: Yes [email or web address] 01:12 PM Delay to floor No [facility] 01:12 PM Patient out of room: 13:12 [email or web address] 01:12 PM Family placed in consult room. [facility] 01:12 PM Complications: None [facility] 01:13 PM Fluoro Time: 1.7 [facility] 01:13 PM Isovue 370 - 200ml contrast 70 ml given by Margarita Waters MD, [facility]. [facility] 01:13 PM Radiation Dose 157.89 mGy [email or web address] 01:15 PM Cardiothoracic surgeon consulted by physician [facility] 01:15 PM Physician consulting with Henry [email or web address] 01:27 PM patient taken to holding room 12 for sheath pull [facility] Villarreal notified of increased b/p. orders received [facility] 01:28 PM Time: 13:28 Hydralazine 10 mg Intravenous Given by Dea Alicea RN [facility] 01:30 PM Arterial sheath pulled using manual compression and V+ Pad for 15 minutes by Dea Alicea RN [facility] 01:45 PM Site status No bleeding/hematoma - Rt Groin as reported by Dea Alicea RN at 13:45 [email or web address] 02:[address] Figueroa at bedside to talk to patient [facility] 02:11 PM Report given to Yoon OLVERA Pt taken to E Room #29. 14:11 [email or web address] 02:12 PM Patient out of room: 14:12 [email or web address] Complications Complication None None Hemodynamics Pressures Site Systolic/A Wave Diastolic/V Wave Mean LV 162 4 25 LV 187 -6 2 AO 164 88 120 AO 135 68 94 Post Procedure Information Blood Pressure: 164/93 mmHg Rhythm: NSR Post procedural instructions were given Site Checks Time Location Status Staff Sheath In? Note 01:09 PM Rt Groin No bleeding/hematoma Dougie Bell RT (R) 01:23 PM Rt Groin No bleeding/ No Hematoma Laura Rivas RN Yes 01:45 PM Rt Groin No bleeding/hematoma Dea Alicea RN Pulses Time Site Pre-Procedure Post-Procedure Note 01/12/2017 12:33:00 PM Bilateral DP & PT 2+ 1:09:00 PM Bilateral DP & PT 2+ 01/12/2017 1:23:00 PM Bilateral DP & PT 2+ 01/12/2017 1:45:00 PM Bilateral DP & PT 2+ Updated by Dea Alicea RN on 01/12/2017 2:18:26 PM electronically signed on 01/12/2017 2:19:21 PM with status of Final
[2017-01-12] MEDS: Aspirin 81 MG TAB.CHEW PO SCH (14:31)
[2017-01-12] MEDS: 0.9 % Sodium Chloride 1,000 ML IVC SCH ×2 (14:31→17:38)
[2017-01-12] MEDS: amLODIPine 5 MG TABLET PO SCH (14:31)
[2017-01-12] MEDS: Nicotine 21 MG PATCH.TD24 TD SCH (14:31)
--- NOTE | 2017-01-12 14:36 | Cardiothoracic Consult Note ---
Date of Encounter: 01/12/17 Time of Encounter: 14:32 Assessment and Plan (1) Elevated troponin Current Visit: Yes Status: Acute The assessment and plan as outlined above was discussed with the patient and/or family members who expressed understanding and agreement. All questions were answered. The patient has triple-vessel disease and is a candidate for coronary artery bypass grafting. This would include a ARCE to the LAD and 2 grafts to the circumflex. The procedure, its risks benefits and alternatives were explained. She will consider. She did receive BRILINTA in the emergency room and will require 5 days off this prior to surgery. She will be maintained on a heparin drip. I will check a carotid duplex because of her history of possible stroke and will await the results of the cardiac echo. - History of Present Illness History of present illness: Ms. Oconnor is a 66 year old female History of present illness. The patient is a 66-year-old female who presented with a 2 day history of chest pain. She did have a positive troponin of 2.36 and a myocardial infarction. Cardiac catheterization done today revealed good ventricular function with triple vessel disease. The right coronary artery is small and not graftable. The LAD is graftable. The circumflex has 2 large branches which could be grafted. Past medical history is notable for hypertension and hyperlipidemia which are not presently being treated. She has a history of thyroid disease but is not on thyroid medication. No history of diabetes. She does have a history of possible stroke in the past in 1999. This was associated with left-sided weakness that eventually resolved. Her only medication at home was baby aspirin. No known allergies. Social history. She lives by herself. 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 She does smoke 1 pack of cigarettes per day. Does not drink alcohol. Family history is positive for coronary artery disease. Review of systems is negative for saphenous vein varicosities or strippings. She did have a hysterectomy. Past Med Surg Social Fam HX - Past Medical History Medical history: CVA (Occurred in 1999), hyperlipidemia, hypertension, thyroid disease Psychiatric history: depression - Social History Smoking Status: Current every day smoker Packs per day: 1/2 PPD Smokeless Tobacco Status: No Alcohol use: none Drug use: none - Family History Brother Race: Family Member Ethnicity: Non- Living Status: Age at : 50 Cause of : AL Hx Family Cardiac Disorders: Yes (AL) Father History Unknown: Yes Mother Race: Family Member Ethnicity: Non- Living Status: Age at : 73 Cause of : Stroke Hx Family Cardiac Disorders: Yes (Multiple CVAs) Medications and Allergies Aspirin [Lo-Dose Aspirin EC] 81 mg PO DAILY 01/12/17 [History] Allergies No Known Allergies Allergy (Verified 01/12/17 09:41) All Systems Review: A 10-system review of systems was performed and is negative for pertinent findings except as documented above in the HPI. Physical Examination Vital Signs, Last 4 Hours Resp BP 01/12/17 12:19 18 165/83 Pupils are equal, round and reactive to light and accommodation. No oral lesions. Neck is supple. Trachea in the midline. No thyromegaly or carotid bruits. Lungs are clear to percussion and auscultation. Heart is in a regular rate and rhythm. No murmurs, gallops or rubs. Abdomen is benign. No tenderness, rebound or guarding. She is status post hysterectomy. Extremities without edema. 1+ pulses. No saphenous vein varicosities or strippings. Cranial nerves, motor and sensory intact. She is awake, alert and oriented 3. Results 01/12/17 08:52 01/12/17 08:52 Consult Discharge Plan - Plan Referrals: NONE,PCP [Primary Care Provider] -
[2017-01-12] MEDS: Heparin 25,000 UNIT/500 ML D5W 25,000 UNIT/500 ML MLS IVC SCH (15:22)
[2017-01-12] MEDS: Nitroglycerin 1 INCH/GM PACKET TP SCH ×2 (15:24→18:02)
--- NOTE | 2017-01-12 16:12 | Electrocardiograph Report ---
[facility] Test Date: 2017-01-12 Pat Name: Le Oconnor Department: 103 Room: 2NE29 Gender: F Member Certification Manager: VINCE : 1950 Requested By: Kevin Rich Order Number: [id number] Reading MD: Belen Hua DO Measurements Intervals [place] Rate: 86 P: -20 ND: 117 QRS: -25 QRSD: 88 T: -27 QT: 384 QTc: 428 Interpretive Statements SINUS RHYTHM WITH SHORT ND INTERVAL BORDERLINE LEFT AXIS DEVIATION MODERATE ST DEPRESSION Left axis deviation Electronically Signed On 01-12-2017 16:11:29 EDT by Belen Hua DO
--- NOTE | 2017-01-12 18:07 | Electrocardiograph Report ---
[place] [id number] Test Date: 2017-01-12 Pat Name: Le Oconnor Department: 103 Room: 2NE29 Gender: F Recycler: VINCE : 1950 Requested By: Anirudh Rodríguez Order Number: [id number] Reading MD: Margarita Waters Measurements Intervals [place] Rate: 88 P: 24 LA: 135 QRS: -1 QRSD: 92 T: 19 QT: 379 QTc: 425 Interpretive Statements SINUS RHYTHM MINIMAL VOLTAGE CRITERIA FOR LVH, CONSIDER NORMAL VARIANT Electronically Signed On 01-12-2017 18:06:31 EDT by Margarita Waters
[2017-01-13 04:03] LABS: Bilirubin,Urine Negative (Negative); Blood,Urine Negative (Negative); Clarity,Urine Clear (Clear); Color,Urine Yellow (Yellow); Glucose,Urine (UA) Normal (Normal); Ketones,Urine Negative (Negative); Leukocyte Esterase,Urine Negative (Negative); Nitrite,Urine Negative (Negative); Protein,Urine Negative (Neg-Trace); Specific Gravity,Urine 1.013 (1.010-1.025); Urobilinogen,Urine Normal (Normal)
[2017-01-13] MEDS: Nitroglycerin 1 INCH/GM PACKET TP SCH ×2 (05:51→12:25)
[2017-01-13] MEDS: 0.9 % Sodium Chloride 1,000 ML IVC SCH (05:51)
[2017-01-13 07:53] LABS: BUN/Creatinine Ratio 8 (6-26); Carbon Dioxide 25 mEq/L (19-29); Chloride 107 mEq/L (98-109); Chol/HDL Ratio 5.3 (0-4.9); Cholesterol 229 mg/dL (< 200); Glucose 96 mg/dL (70-99); HDL Cholesterol 43 mg/dL (40-59); LDL Cholesterol,Calculated 158 mg/dL (0-99); Osmolality,Calculated 283 (280-300); Potassium 3.5 mEq/L (3.5-4.5); Sodium 138 mEq/L (136-145); Triglycerides 140 mg/dL (< 150); eGFR For African Americans > 60 (> 60); eGFR For Non-African Americans > 60 (> 60)
[2017-01-13 08:04] LABS: Basophils % 0.2 %; Eosinophils % 0.3 %; Hematocrit 38.8 % (35.3-44.9); Immature Granulocytes % 0.3 % (0-4); Lymphocytes # 2.1 K/mcL (0.6-4.6); Lymphocytes % 21.9 %; Mean Corpuscular HGB Conc 33.8 g/dL (31.6-35.5); Mean Corpuscular Volume 91.9 fL (83.0-100.0); Mean Platelet Volume 9.6 fL (9.4-12.4); Monocytes # 0.7 K/mcL (0.0-1.3); Neutrophils # 6.6 K/mcL (1.6-8.9); Platelet Count 236 K/mcL (140-400); Red Blood Count 4.22 M/mcL (3.82-4.97); Red Cell Distribution Width 12.9 % (11.5-14.5); Segmented Neutrophils % 70.3 %
[2017-01-13 08:06] LABS: Blood Urea Nitrogen 5 mg/dL (7-20)
[2017-01-13 08:20] LABS: Hemoglobin 13.1 g/dL (11.5-15.4)
[2017-01-13] MEDS: Aspirin 81 MG TAB.CHEW PO SCH (08:28)
[2017-01-13 08:29] LABS: Hemoglobin A1C 5.4 %
[2017-01-13] MEDS: amLODIPine 5 MG TABLET PO SCH (08:29)
[2017-01-13] MEDS: Nicotine 21 MG PATCH.TD24 TD SCH (08:29)
[2017-01-13] MEDS: *HR* Heparin 5,000 UNIT/ML VIAL IVP PRN (08:39)
--- NOTE | 2017-01-13 08:58 | Cardiothoracic Progress Note ---
Date of Encounter: 01/13/17 Time of Encounter: 08:56 - Assessment and plan (1) Elevated troponin Current Visit: Yes Status: Acute We will schedule the patient for surgery on Sunday. At this point, she has no questions. - Subjective Interval history: The patient has no complaints. No recent chest pain or angina. Vital Signs, Last 4 Hours Temp Pulse Resp BP Pulse Ox 01/13/17 07:00 98.2 F 92 15 171/95 98 Clinical Data, last 8 Hours Output, Urine Amount 200 Weight 01/11/17 01/12/17 01/13/17 23:59 23:59 23:59 Weight 71.7 kg Lungs are clear to percussion and auscultation. Heart is in a normal sinus rhythm. - Labs 01/13/17 06:57 01/13/17 06:57 Lab Results, Last 24 hours 01/12/17 01/13/17 01/13/17 21:00 06:57 06:57 WBC 9.4 Hgb 13.1 D Hct 38.8 Plt Count 236 APTT 42.5 H Sodium 138 Potassium 3.5 Chloride 107 Carbon Dioxide 25 BUN 5 L Creatinine 0.63 Glucose 96 Calcium 9.0 01/13/17 06:57 WBC Hgb Hct Plt Count APTT 58.6 H Sodium Potassium Chloride Carbon Dioxide BUN Creatinine Glucose Calcium Consult Discharge Plan - Plan Referrals: NONE,PCP [Primary Care Provider] -
[2017-01-13 10:11] LABS: Hematocrit 38.5 % (35.3-44.9); Hemoglobin 12.7 g/dL (11.5-15.4); Mean Corpuscular Hemoglobin 30.5 pg (28.0-33.3); Mean Corpuscular Volume 92.5 fL (83.0-100.0); Mean Platelet Volume 9.4 fL (9.4-12.4); Platelet Count 233 K/mcL (140-400); Red Blood Count 4.16 M/mcL (3.82-4.97); Red Cell Distribution Width 12.8 % (11.5-14.5)
[2017-01-13 10:16] LABS: INR 1.2; Prothrombin Time 12.8 Seconds (9.4-12.1)
--- NOTE | 2017-01-13 11:00 | Cardiology Progress Note ---
Date of Encounter: 01/13/17 Time of Encounter: 10:57 Assessment and Plan (1) NSTEMI (non-ST elevated myocardial infarction) Current Visit: Yes Status: Acute Initial troponin 2.36. [facility] yesterday severe 3 vessel CAD--CT surgery consulted. Tentative plan for CABG on Sunday to allow Brilinta washout (loaded). Pt denies chest pain or dyspnea today. Continue heparin gtt. Continue ASA, Statin, BB, ARB. Echo pending. HGBA1C 5.4. Carotid dopplers with nonstenotic plaque. Right femoral access site healing well. No bleeding, hematoma or ecchymosis noted. Cardiology signing off. Reconsult PRN. Follow-up 4-6 weeks after CABG. (2) Tobacco abuse Current Visit: Yes Status: Chronic <1PPD since age 21. Smoking cessation counseling given. (3) Accelerated hypertension Current Visit: Yes Status: Acute BP 213/126 on presentation. 160s systolic at bedside. Increased BB and ARB this AM. On Norvasc 10mg daily as well. Continue to adjust as necessary. (4) Hypothyroidism Current Visit: Yes Status: Acute TSH 7.43, no hx. Management per primary team. Qualifiers: Hypothyroidism type: unspecified Qualified Code(s): E03.9 - Hypothyroidism , unspecified Discussion w patient/family: The assessment and plan as outlined above was discussed with the patient and/or family members who expressed understanding and agreement. All questions were answered. Thank you for involving us in the care of your patient. Please call with any questions. I will discuss all the above with Dr. Pete Waters and make changes as necessary. Subjective Principal diagnosis: NSTEMI Interval history: [facility] yesterday revealed severe 3 vessel CAD--CT surgery consulted with tentative plans for CABG Sunday to allow Brilinta washout. Pt denies any chest pain or dyspnea this AM. Reports feeling well. Echo pending. Objective Vital Signs, Last 4 Hours Temp Pulse Resp BP Pulse Ox 01/13/17 07:00 98.2 F 92 15 171/95 98 Vital Signs Temp Pulse Resp BP Pulse Ox 01/13/17 07:00 98.2 F 92 15 171/95 98 01/13/17 04:44 99.5 F 84 18 167/90 97 01/12/17 23:48 99.8 F H 84 16 147/85 96 01/12/17 21:34 98.9 F 101 20 122/67 92 01/12/17 16:57 89 16 177/92 89 01/12/17 16:56 89 16 158/90 89 01/12/17 15:30 98.5 F 89 16 158/90 89 01/12/17 15:15 90 16 139/81 90 01/12/17 14:47 98.5 F 93 18 145/81 95 01/12/17 14:45 98.5 F 97 16 145/81 95 01/12/17 14:37 93 16 152/87 01/12/17 12:19 18 165/83 Intake and Output 01/12/17 01/13/17 01/13/17 23:59 07:59 15:59 Intake Total 240 / 240 1254 / 1254 789 / 789 Output Total 200 / 200 Balance 240 / 240 1254 / 1254 589 / 589 Intake: IV Fluids 1254 / 1254 429 / 429 0.9 % Sodium Chloride 1, 1000 / 1000 000 ML @ 60 mls/hr IVC . [id number] ADA Rx#: [id number] Heparin 25,000 UNIT/500 254 / 254 429 / 429 ML D5W 25,000 unit In 500 ml @ 12 UNIT/KG/HR 17. 461 mls/hr IVC .Q24H ADA Rx#:[id number] Oral 240 / 240 360 / 360 Output: Urine 200 / 200 Other: Meal Dinner Breakfast Percent of Meal Consumed 50% 75% # Voids 1 Weight 71.7 kg Patient Weight 01/13/17 23:59 Weight 71.7 kg General: Conversant, No Apparent Distress HEENT: Atraumatic, Normocephaly, Mucus Membranes Moist Neck: No JVD, Normal carotid pulses Cardiac: Reg Rate and Rhythm, Normal S1 and S2, No Murmur Lungs: Normal Breath Sounds, No Wheeze, Rales, Rhonchi Neuro: Alert and responsive, No focal deficits noted Abdomen: Soft, Non-Tender Skin: Other (right femoral access site healing well. No bleeding, hematoma or ecchymosis noted.) Musculoskeletal: No Chest Wall Tenderness Extremities: No Clubbing, No Cyanosis, No Edema, Normal Pulses Results 01/13/17 09:53 01/13/17 06:57 Lab Results 01/12/17 01/13/17 01/13/17 21:00 06:57 06:57 WBC 9.4 Hgb 13.1 D Hct 38.8 Plt Count 236 INR APTT 42.5 H Sodium 138 Potassium 3.5 Chloride 107 Carbon Dioxide 25 BUN 5 L Creatinine 0.63 Glucose 96 Calcium 9.0 01/13/17 01/13/17 01/13/17 06:57 09:53 09:53 WBC 9.6 Hgb 12.7 Hct 38.5 Plt Count 233 INR 1.2 APTT 58.6 H Sodium Potassium Chloride Carbon Dioxide BUN Creatinine Glucose Calcium Short CBC 01/13/17 01/13/17 Range/Units 09:53 06:57 WBC 9.6 9.4 (4.3-11.1) K/mcL Hgb 12.7 13.1 D (11.5-15.4) g/dL Hct 38.5 38.8 (35.3-44.9) % Plt Count 233 236 (140-400) K/mcL Neutrophils # 6.6 (1.6-8.9) K/mcL BMP 01/13/17 Range/Units 06:57 Sodium 138 (136-145) mEq/L Potassium 3.5 (3.5-4.5) mEq/L Chloride 107 (98-109) mEq/L Carbon Dioxide 25 (19-29) mEq/L BUN 5 L (7-20) mg/dL Creatinine 0.63 (0.57-1.11) mg/dL Glucose 96 (70-99) mg/dL Calcium 9.0 (8.6-10.8) mg/dL Liver Function 01/12/17 Range/Units 08:52 AST 43 H (5-34) Units/L ALT 22 (0-55) Units/L Alkaline Phosphatase 90 (38-126) Units/L Albumin 4.3 (3.5-5.0) g/dL Urine 01/13/17 Range/Units 03:50 Urine Color Yellow (Yellow) Urine Clarity Clear (Clear) Urine pH 7.0 (5.0-8.0) pH Units Ur Specific [place] 1.013 (1.010-1.025) Urine Protein Negative (Neg-Trace) mg/dL Urine Glucose (UA) Normal (Normal) mg/dL Active Medications Acetaminophen (Tylenol) 500 mg PO Q6HR PRN PRN Reason: Mild Pain Stop: 07/14/17 10:44 Last Admin: 01/13/17 03:38 Dose: 500 mg Acetaminophen (Tylenol) 650 mg PO Q6HR PRN PRN Reason: Mild Pain (1-3) Stop: 07/14/17 10:50 Albuterol/Ipratropium (Duoneb) 3 ml IH [id number] PRN; Protocol PRN Reason: Shortness Of Breath/Wheezing Stop: 07/14/17 10:51 Amlodipine Besylate (Norvasc) 10 mg PO DAILY [facility] PRN Reason: Protocol Stop: 07/14/17 11:01 Last Admin: 01/13/17 08:29 Dose: 10 mg Aspirin (Aspirin) 324 mg PO DAILY [facility] Stop: 07/14/17 10:46 Last Admin: 01/13/17 08:28 Dose: 324 mg Atorvastatin Calcium (Lipitor) 80 mg PO HS [facility] Stop: 07/14/17 21:01 Last Admin: 01/12/17 20:16 Dose: 80 mg Heparin Sodium (Porcine) (Heparin) 4,000 unit IVP Q6HR PRN PRN Reason: SEE COMMENTS Stop: 07/14/17 10:44 Heparin Sodium (Porcine) (Heparin) 2,000 unit IVP Q6H PRN PRN Reason: SEE COMMENTS Stop: 07/14/17 10:44 Last Admin: 01/13/17 08:39 Dose: 2,000 unit Hydralazine HCl (Hydralazine) 20 mg IVP Q6HR PRN PRN Reason: Hypertension Stop: 07/14/17 10:55 Last Admin: 01/12/17 18:05 Dose: 20 mg Sodium Chloride (0.9 % Sodium Chloride) 1,000 mls @ 60 mls/hr IVC .[id number] [facility] Stop: 07/14/17 10:46 Last Admin: 01/13/17 05:51 Dose: 60 mls/hr Heparin Sodium/Dextrose (Heparin 25,000 Unit/500 Ml D5w) 25,000 unit in 500 mls @ 17.461 mls/hr IVC .Q24H ADA; 12 UNIT/KG/HR PRN Reason: Protocol Stop: 07/14/17 10:46 Last Titration: 01/13/17 08:44 Dose: 15.8 unit/kg/hr, 23 mls/hr Losartan Potassium (Cozaar) 50 mg PO DAILY [facility] Stop: 07/15/17 09:01 Last Admin: 01/13/17 08:28 Dose: 50 mg Metoprolol Tartrate (Lopressor) 50 mg PO BID [facility] Stop: 07/15/17 09:01 Last Admin: 01/13/17 08:28 Dose: 50 mg Morphine Sulfate (Morphine Sulfate) 4 mg IVP Q3H PRN PRN Reason: Severe Pain (7-10) Stop: 07/14/17 10:44 Naloxone HCl (Narcan) 0.4 mg IVP Q2MIN PRN PRN Reason: Opioid Reversal Stop: 07/14/17 10:44 Naloxone HCl (Narcan) 0.4 mg IVP Q2MIN PRN PRN Reason: Opioid Reversal Stop: 07/14/17 10:50 Nicotine (Nicoderm) 21 mg TD DAILY [facility] PRN Reason: Protocol Stop: 07/14/17 10:46 Last Admin: 01/13/17 08:29 Dose: Not Given Nitroglycerin (Nitroglycerin) 0.5 inch TP Q6HNTG [facility] Stop: 07/14/17 12:01 Last Admin: 01/13/17 05:51 Dose: 0.5 inch Nitroglycerin (Nitroglycerin) 0.4 mg SL Q5MIN PRN PRN Reason: Chest Pain Stop: 07/14/17 10:44 Last Admin: 01/12/17 11:51 Dose: 0.4 mg Omeprazole (Prilosec) 20 mg PO DAILY@0630 [facility] PRN Reason: Protocol Stop: 07/15/17 06:31 Last Admin: 01/13/17 05:51 Dose: 20 mg Ondansetron HCl (Zofran) 4 mg IVP Q8HR PRN PRN Reason: Nausea And Vomiting Stop: 07/14/17 10:44 - Imaging and Cardiology Echo: pending Cardiac cath: report reviewed - EKG Interpretation EKG results cardiology: personally reviewed Consult Discharge Plan - Plan Referrals: NONE,PCP [Primary Care Provider] -
[2017-01-13] MEDS: Heparin 25,000 UNIT/500 ML D5W 25,000 UNIT/500 ML MLS IVC SCH (12:21)
--- NOTE | 2017-01-13 17:28 | Internal Med Progress Note ---
Date of Encounter: 01/14/17 Time of Encounter: 17:25 - Assessment and plan (1) NSTEMI (non-ST elevated myocardial infarction) Current Visit: Yes Status: Acute (2) Accelerated hypertension Current Visit: Yes Status: Acute (3) HLD (hyperlipidemia) Current Visit: Yes Status: Chronic Qualifiers: Hyperlipidemia type: pure hypercholesterolemia Qualified Code(s): E78.00 - Pure hypercholesterolemia, unspecified; E78.0 - Pure hypercholesterolemia (4) DVT prophylaxis Current Visit: Yes Status: Acute - Subjective Interval history: Patient is 66 year old female presented with chest pain and elevated troponin and abnormal EKG. Initial troponin 2.36. [facility] yesterday severe 3 vessel CAD--CT surgery consulted. Tentative plan for CABG on Sunday to allow Brilinta washout (loaded). Pt denies chest pain or dyspnea today. Continue heparin gtt.Continue ASA, Statin, BB, ARB. - Constitutional Vitals: Temp Pulse Resp BP Pulse Ox 98.5 F 73 17 115/70 97 01/13/17 15:00 01/13/17 15:00 01/13/17 15:00 01/13/17 15:00 01/13/17 15:00 General appearance: Present: cooperative, A&O X 3, pleasant, no acute distress, obese, answers questions appropriately - Head Head exam: Present: atraumatic, normocephalic - Eye Eye exam: Present: PERRL, conjuntiva pink, sclera anicteric Pupils: Present: PERRL - Neck Neck exam general surgery: Present: supple, trachea midline. Absent: lymphadenopathy - Respiratory Respiratory exam: Present: CTAB. Absent: accessory muscle use, rales, rhonchi, wheezes - Cardiovascular Cardiovascular exam: Present: RRR, +S1, +S2. Absent: diastolic murmur, gallop, rubs, systolic murmur - GI/Abdominal GI/Abdominal exam: Present: normal bowel sounds, soft, no peritoneal signs. Absent: distended, tenderness - Extremities Exam Extremities exam: Present: warm, radial pulses palpable and symetrical. Absent : calf tenderness, cyanotic, pedal edema - Neurological Exam Neurological exam: Present: CN II-XII intact, oriented X3, no focal deficits. Absent: pronater drift, facial droop, speech deficit - Skin Skin exam: Present: dry, intact Internal Medicine: Result - Labs CBC & Chem 7: 01/13/17 09:53 01/13/17 06:57 Labs: Short CBC 01/13/17 01/13/17 Range/Units 06:57 09:53 WBC 9.4 9.6 (4.3-11.1) K/mcL Hgb 13.1 D 12.7 (11.5-15.4) g/dL Hct 38.8 38.5 (35.3-44.9) % Plt Count 236 233 (140-400) K/mcL Neutrophils # 6.6 (1.6-8.9) K/mcL BMP 01/13/17 06:57 Sodium 138 Potassium 3.5 Chloride 107 Carbon Dioxide 25 BUN 5 L Creatinine 0.63 Glucose 96 Calcium 9.0 Urine 01/13/17 Range/Units 03:50 Urine Color Yellow (Yellow) Urine Clarity Clear (Clear) Urine pH 7.0 (5.0-8.0) pH Units Ur Specific [place] 1.013 (1.010-1.025) Urine Protein Negative (Neg-Trace) mg/dL Urine Glucose (UA) Normal (Normal) mg/dL - ABG Interpretation ABG results: PT/INR, D-dimer PT 12.8 Seconds (9.4-12.1) H 01/13/17 09:53 Consult Discharge Plan - Plan Referrals: NONE,PCP [Primary Care Provider] -
[2017-01-14] MEDS: Nitroglycerin 1 INCH/GM PACKET TP SCH ×2 (05:13→11:49)
[2017-01-14] MEDS: Aspirin 81 MG TAB.CHEW PO SCH (08:05)
[2017-01-14] MEDS: amLODIPine 5 MG TABLET PO SCH (08:06)
[2017-01-14] MEDS: Nicotine 21 MG PATCH.TD24 TD SCH (08:09)
[2017-01-14] MEDS: Heparin 25,000 UNIT/500 ML D5W 25,000 UNIT/500 ML MLS IVC SCH (09:05)
--- NOTE | 2017-01-14 09:13 | Cardiothoracic Progress Note ---
Date of Encounter: 01/14/17 Time of Encounter: 09:10 - Assessment and plan (1) Elevated troponin Current Visit: Yes Status: Acute The patient is scheduled for open heart surgery on Sunday. Operative consent was obtained. Risk of surgery include , infection, stroke, myocardial infarction, bleeding, clots around the heart, renal or respiratory failure, acute or chronic graft closure, phrenic nerve injury and sternal dehiscence. The procedure, its risks, benefits and alternatives were explained and she does wish to proceed. She has no questions. - Subjective Interval history: The patient has had no angina and no chest pain. Vital Signs, Last 4 Hours Temp Pulse Resp BP Pulse Ox 01/14/17 07:00 98.8 F 74 15 148/81 97 01/14/17 05:15 98.8 F 67 19 120/73 98 Weight 01/12/17 01/13/17 01/14/17 23:59 23:59 23:59 Weight 71.7 kg Lungs are clear to percussion and auscultation. Heart is in a normal sinus rhythm. - Labs 01/13/17 09:53 01/13/17 06:57 Lab Results, Last 24 hours 01/13/17 01/13/17 01/13/17 09:53 09:53 14:30 WBC 9.6 Hgb 12.7 Hct 38.5 Plt Count 233 INR 1.2 APTT 66.4 H 01/13/17 19:49 WBC Hgb Hct Plt Count INR APTT 60.3 H Consult Discharge Plan - Plan Referrals: NONE,PCP [Primary Care Provider] -
--- NOTE | 2017-01-14 16:24 | Internal Med Progress Note ---
Date of Encounter: 01/14/17 Time of Encounter: 16:24 - Assessment and plan (1) NSTEMI (non-ST elevated myocardial infarction) Current Visit: Yes Status: Acute (2) Accelerated hypertension Current Visit: Yes Status: Acute (3) HLD (hyperlipidemia) Current Visit: Yes Status: Chronic Qualifiers: Hyperlipidemia type: pure hypercholesterolemia Qualified Code(s): E78.00 - Pure hypercholesterolemia, unspecified; E78.0 - Pure hypercholesterolemia (4) DVT prophylaxis Current Visit: Yes Status: Acute - Subjective Interval history: Patient is 66 year old female presented with chest pain and elevated troponin and abnormal EKG. Initial troponin 2.36. [facility] yesterday severe 3 vessel CAD--CT surgery consulted. Tentative plan for CABG on Sunday to allow Brilinta washout (loaded). Pt denies chest pain or dyspnea today. Continue heparin gtt.Continue ASA, Statin, BB, ARB. - Constitutional Vitals: Temp Pulse Resp BP Pulse Ox 98.8 F 62 15 128/67 97 01/14/17 07:00 01/14/17 11:52 01/14/17 07:00 01/14/17 11:52 01/14/17 07:00 General appearance: Present: cooperative, A&O X 3, pleasant, no acute distress, obese, answers questions appropriately - Head Head exam: Present: atraumatic, normocephalic - Eye Eye exam: Present: PERRL, conjuntiva pink, sclera anicteric Pupils: Present: PERRL - Neck Neck exam general surgery: Present: supple, trachea midline. Absent: lymphadenopathy - Respiratory Respiratory exam: Present: CTAB. Absent: accessory muscle use, rales, rhonchi, wheezes - Cardiovascular Cardiovascular exam: Present: RRR, +S1, +S2. Absent: diastolic murmur, gallop, rubs, systolic murmur - GI/Abdominal GI/Abdominal exam: Present: normal bowel sounds, soft, no peritoneal signs. Absent: distended, tenderness - Extremities Exam Extremities exam: Present: warm, radial pulses palpable and symetrical. Absent : calf tenderness, cyanotic, pedal edema - Neurological Exam Neurological exam: Present: CN II-XII intact, oriented X3, no focal deficits. Absent: pronater drift, facial droop, speech deficit - Skin Skin exam: Present: dry, intact Internal Medicine: Result - Labs CBC & Chem 7: 01/13/17 09:53 01/13/17 06:57 - ABG Interpretation ABG results: PT/INR, D-dimer PT 12.8 Seconds (9.4-12.1) H 01/13/17 09:53 Consult Discharge Plan - Plan Referrals: NONE,PCP [Primary Care Provider] -
[2017-01-15] MEDS: *HR* Heparin 5,000 UNIT/ML VIAL IVP PRN (03:31)
[2017-01-15] MEDS: Heparin 25,000 UNIT/500 ML D5W 25,000 UNIT/500 ML MLS IVC SCH ×2 (04:43→23:45)
--- NOTE | 2017-01-15 10:01 | Anesthesia Evaluation PreOp ---
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 History: TIA (1999, no residual) Other Medical History: Thyroid (questionable, on no meds) Anesthesia History: No Prior Anesthetic Complications, Past Anesthesia (AKILAH 3 years ago) : No Alcohol Use: none Drug use: none Medications and Allergies Aspirin [Lo-Dose Aspirin EC] 81 mg PO DAILY 01/12/17 [History] Allergies No Known Allergies Allergy (Verified 01/12/17 09:41) - Meds/Allergy Pre-op Review Medications Reviewed: Yes Allergies Reviewed: Yes Beta Blockers on Current Med List: Yes If Beta Blockers taken, Date/Time (Last Dose taken): 01/16/2017 at 2008 Anesthesia Results - Labs 01/13/17 09:53 01/13/17 06:57 - Imaging EKG: report reviewed Additional studies: cath shows 3 vessel disease Anesthesia Exam Selected Entries 01/17/17 06:38 Temperature 98.8 F Pulse Rate 61 Respiratory Rate 14 Blood Pressure 139/86 O2 Sat by Pulse Oximetry 93 Weight: 72kg NPO (# of Hours): >8 Pain Scale: 0 Pain Scale Used: Numeric (1 - 10) - HEENT Pupil (Motor): EOMI Mallampati: III Teeth: Normal Oral Opening: Greater than 3 - [employer]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
[2017-01-15] MEDS: Nicotine 21 MG PATCH.TD24 TD SCH (10:30)
[2017-01-15] MEDS: Aspirin 81 MG TAB.CHEW PO SCH (10:30)
[2017-01-15] MEDS: amLODIPine 5 MG TABLET PO SCH (10:30)
[2017-01-15] MEDS: Nitroglycerin 1 INCH/GM PACKET TP SCH ×2 (10:31→17:16)
--- NOTE | 2017-01-15 14:01 | Internal Med Progress Note ---
Date of Encounter: 01/15/17 Time of Encounter: 14:01 - Assessment and plan (1) NSTEMI (non-ST elevated myocardial infarction) Current Visit: Yes Status: Acute (2) Accelerated hypertension Current Visit: Yes Status: Acute (3) HLD (hyperlipidemia) Current Visit: Yes Status: Chronic Qualifiers: Hyperlipidemia type: pure hypercholesterolemia Qualified Code(s): E78.00 - Pure hypercholesterolemia, unspecified; E78.0 - Pure hypercholesterolemia (4) DVT prophylaxis Current Visit: Yes Status: Acute - Subjective Interval history: Patient is 66 year old female presented with chest pain and elevated troponin and abnormal EKG. Initial troponin 2.36. [facility] yesterday severe 3 vessel CAD--CT surgery consulted. Tentative plan for CABG on Sunday to allow Brilinta washout (loaded). Pt denies chest pain or dyspnea today. Continue heparin gtt.Continue ASA, Statin, BB, ARB. - Constitutional Vitals: Temp Pulse Resp BP Pulse Ox 98.4 F 72 15 139/79 98 01/15/17 10:57 01/15/17 10:57 01/15/17 10:57 01/15/17 10:57 01/15/17 10:57 General appearance: Present: cooperative, A&O X 3, pleasant, no acute distress, obese, answers questions appropriately - Head Head exam: Present: atraumatic, normocephalic - Eye Eye exam: Present: PERRL, conjuntiva pink, sclera anicteric Pupils: Present: PERRL - Neck Neck exam general surgery: Present: supple, trachea midline. Absent: lymphadenopathy - Respiratory Respiratory exam: Present: CTAB. Absent: accessory muscle use, rales, rhonchi, wheezes - Cardiovascular Cardiovascular exam: Present: RRR, +S1, +S2. Absent: diastolic murmur, gallop, rubs, systolic murmur - GI/Abdominal GI/Abdominal exam: Present: normal bowel sounds, soft, no peritoneal signs. Absent: distended, tenderness - Extremities Exam Extremities exam: Present: warm, radial pulses palpable and symetrical. Absent : calf tenderness, cyanotic, pedal edema - Neurological Exam Neurological exam: Present: CN II-XII intact, oriented X3, no focal deficits. Absent: pronater drift, facial droop, speech deficit - Skin Skin exam: Present: dry, intact Internal Medicine: Result - Labs CBC & Chem 7: 01/13/17 09:53 01/13/17 06:57 - ABG Interpretation ABG results: PT/INR, D-dimer PT 12.8 Seconds (9.4-12.1) H 01/13/17 09:53 Consult Discharge Plan - Plan Referrals: NONE,PCP [Primary Care Provider] -
--- NOTE | 2017-01-15 14:58 | Carotid Imaging Report ---
Carotid Duplex Patient Name:Le Oconnor Order Number:[id number] Procedure Date:01/12/2017 Date:1950ge:66 yrs Gender:Female Rt.BP:145 / 81 mmHgHeart Rate: Location:[facility] Room #: 2NE29 Line Maintainer Section:Yoon Benjamin RDCS Referring MD:Rosendo Figueroa MD processing engineer:None Reading MD:Javier Martinez MD , FACS Primary Indications:Hx CVA Risk Factors Yes/No Hypertension Yes Hypercholesterolemia Yes Smoking Current Yes Impressions: Findings: Bilateral carotid systems have nonstenotic plaque. Findings Carotid Duplex: Right: The right proximal common carotid artery has a PSV of 75 cm/s and a EDV of 17 cm/s. The right mid common carotid artery has a PSV of 98 cm/s and a EDV of 24 cm/s. The right distal common carotid artery has a PSV of 126 cm/s and a EDV of 35 cm/s. There is nonstenotic plaque in the right bifurcation with a PSV of 131 cm/s and a EDV of 30 cm/s. The right proximal internal carotid artery has a PSV of 87 cm/s and a EDV of 32 cm/s. The right mid internal carotid artery has a PSV of 92 cm/s and a EDV of 34 cm/s. The right distal internal carotid artery has a PSV of 97 cm/s and a EDV of 38 cm/s. The right eca has a PSV of 113 cm/s and a EDV of 18 cm/s. The right vertebral artery has a PSV of 44 cm/s and a EDV of 13 cm/s. There is antegrade spectral Doppler flow patterns. Left: There is nonstenotic plaque in the left proximal common carotid artery with a PSV of 105 cm/s and a EDV of 24 cm/s. There is nonstenotic plaque in the left mid common carotid artery with a PSV of 79 cm/s and a EDV of 23 cm/s. There is nonstenotic plaque in the left distal common carotid artery with a PSV of 119 cm/s and a EDV of 29 cm/s. There is nonstenotic plaque in the left bifurcation with a PSV of 126 cm/s and a EDV of 26 cm/s. The left proximal internal carotid artery has a PSV of 113 cm/s and a EDV of 43 cm/s. The left mid internal carotid artery has a PSV of 127 cm/s and a EDV of 40 cm/s. The left distal internal carotid artery has a PSV of 126 cm/s and a EDV of 46 cm/s. The left eca has a PSV of 225 cm/s and a EDV of 20 cm/s. The left vertebral artery has a PSV of 61 cm/s and a EDV of 28 cm/s. There is antegrade spectral Doppler flow patterns. Prior Study: No prior study available for comparison. Carotid Results Right PSV EDV Assessment Proximal CCA 75 17 Mid CCA 98 24 Distal CCA 126 35 Bifurcation 131 30 Non Stenotic Plaque Proximal ICA 87 32 Mid ICA 92 34 Distal ICA 97 38 ECA 113 18 Vertebral Artery 44 13 Antegrade Flow Left PSV EDV Assessment Proximal CCA 105 24 Non Stenotic Plaque Mid CCA 79 23 Non Stenotic Plaque Distal CCA 119 29 Non Stenotic Plaque Bifurcation 126 26 Non Stenotic Plaque Proximal ICA 113 43 Mid ICA 127 40 Distal ICA 126 46 ECA 225 20 Vertebral Artery 61 28 Antegrade Flow Ratio's Right ICA/CCA Ratio: 0.98 ICA/CCA Values: 97/98 Left ICA/CCA Ratio: 1.60 ICA/CCA Values: 127/79 Updated by Javier Martinez MD, FACS on 01/12/2017 8:58:05 PM Javier Martinez MD electronically signed on 01/12/2017 8:58:41 PM with status of Final
--- NOTE | 2017-01-16 07:12 | Cardiothoracic Progress Note ---
Date of Encounter: 01/15/17 Time of Encounter: 07:35 - Assessment and plan (1) CAD (coronary artery disease) Current Visit: Yes Status: Acute The patient is scheduled for CABG by Dr. Rosendo Figueroa on Tuesday, January 17, 2017. She has no questions at this time. The assessment and plan as outlined above was discussed with the patient and/or family members who expressed understanding and agreement. All questions were answered. Qualifiers: Coronary Disease-Associated Artery/Lesion type: ione artery [place] vs. transplanted heart: ione heart Associated angina: with stable angina Qualified Code(s): I25.118 - Atherosclerotic heart disease of ione coronary artery with other forms of angina pectoris - Subjective Interval history: The patient remained hemodynamic stable overnight. She has no complaints of chest pain. Vital Signs, Last 4 Hours Temp Pulse Resp BP Pulse Ox 01/16/17 06:37 98.7 F 69 18 142/84 97 Clinical Data, last 8 Hours Output, Urine Amount 650 Output, Urine Amount 250 Weight 01/14/17 01/15/17 01/16/17 23:59 23:59 23:59 Weight 71.6 kg - Physical Examination General: Conversant, No Apparent Distress Neck: No JVD, Normal carotid pulses Cardiac: Reg Rate and Rhythm, Normal S1 and S2, No Murmur Lungs: Normal Breath Sounds, No Wheeze, Rales, Rhonchi Neuro: Alert and responsive, No focal deficits noted Vascular: Normal capillary refill Musculoskeletal: No Chest Wall Tenderness Extremities: No Clubbing, No Cyanosis, No Edema - Labs 01/13/17 09:53 01/13/17 06:57 Lab Results, Last 24 hours 01/15/17 01/15/17 09:20 17:40 APTT 80.3 H 67.1 H Consult Discharge Plan - Plan Referrals: Abdi Mederos, [employer] [Advanced Practice Nurse] - 02/26/17 1:00 pm NONE,PCP [Primary Care Provider] -
[2017-01-16] MEDS ORDERED: ceFAZolin 2,000 MG in D5% in Water 100 ML IVPB ONE (07:13)
--- NOTE | 2017-01-16 07:13 | Cardiothoracic Progress Note ---
Date of Encounter: 01/16/17 Time of Encounter: 07:12 - Assessment and plan (1) CAD (coronary artery disease) Current Visit: Yes Status: Acute The patient is scheduled for CABG by Dr. Rosendo Figueroa on Tuesday, January 17, 2017. She has no questions at this time. The assessment and plan as outlined above was discussed with the patient and/or family members who expressed understanding and agreement. All questions were answered. Qualifiers: Coronary Disease-Associated Artery/Lesion type: platinum artery [place] vs. transplanted heart: platinum heart Associated angina: with stable angina Qualified Code(s): I25.118 - Atherosclerotic heart disease of platinum coronary artery with other forms of angina pectoris (2) NSTEMI (non-ST elevated myocardial infarction) Current Visit: Yes Status: Acute The patient remained hemodynamically stable overnight. She has no complaints of his pain. She is scheduled for CABG by Dr. Rosendo Figueroa in the morning. The assessment and plan as outlined above was discussed with the patient and/or family members who expressed understanding and agreement. All questions were answered. - Subjective Interval history: The patient remained hemodynamic stable overnight. She has no complaints of chest pain. Vital Signs, Last 4 Hours Temp Pulse Resp BP Pulse Ox 01/16/17 06:37 98.7 F 69 18 142/84 97 Clinical Data, last 8 Hours Output, Urine Amount 650 Output, Urine Amount 250 Weight 01/14/17 01/15/17 01/16/17 23:59 23:59 23:59 Weight 71.6 kg - Physical Examination General: Conversant, No Apparent Distress Neck: No JVD, Normal carotid pulses Cardiac: Reg Rate and Rhythm, Normal S1 and S2, No Murmur Lungs: Normal Breath Sounds, No Wheeze, Rales, Rhonchi Neuro: Alert and responsive, No focal deficits noted Vascular: Normal capillary refill Musculoskeletal: No Chest Wall Tenderness Extremities: No Clubbing, No Cyanosis, No Edema - Labs 01/13/17 09:53 01/13/17 06:57 Lab Results, Last 24 hours 01/15/17 01/15/17 09:20 17:40 APTT 80.3 H 67.1 H Consult Discharge Plan - Plan Referrals: Abdi Mederos CNP [Advanced Practice Nurse] - 02/26/17 1:00 pm NONE,PCP [Primary Care Provider] -
[2017-01-16] MEDS: amLODIPine 5 MG TABLET PO SCH (09:07)
[2017-01-16] MEDS: Nicotine 21 MG PATCH.TD24 TD SCH (09:08)
[2017-01-16] MEDS: Aspirin 81 MG TAB.CHEW PO SCH (09:08)
[2017-01-16] MEDS: Nitroglycerin 1 INCH/GM PACKET TP SCH (09:08)
--- NOTE | 2017-01-16 17:44 | Internal Med Progress Note ---
Date of Encounter: 01/16/17 Time of Encounter: 12:00 - Assessment and plan (1) NSTEMI (non-ST elevated myocardial infarction) Current Visit: Yes Status: Acute Assessment and plan: Patient presented with chest pain with elevated troponin, peak troponin at 2.36. Cardiology was consulted and patient underwent left heart catheterization that showed three-vessel disease, recommend cardiothoracic surgery evaluation. CT surgery on board, plan for CABG tomorrow after Brilinta washout. Continue anticoagulation with IV heparin drip, aspirin, beta gurdeep and statin. (2) Essential hypertension Current Visit: Yes Status: Chronic Assessment and plan: Blood pressure noted to be well controlled. Continue current regimen. (3) Hypothyroidism Current Visit: Yes Status: Chronic Assessment and plan: Continue levothyroxine. Qualifiers: Hypothyroidism type: unspecified Qualified Code(s): E03.9 - Hypothyroidism , unspecified (4) HLD (hyperlipidemia) Current Visit: Yes Status: Chronic Qualifiers: Hyperlipidemia type: unspecified Qualified Code(s): E78.5 - Hyperlipidemia , unspecified (5) Tobacco abuse Current Visit: Yes Status: Chronic Assessment and plan: Patient declines nicotine transdermal patch at this time. - Subjective Interval history: Improved chest pain. No dyspnea, palpitations or leg swelling. Awaiting CABG tomorrow. - Constitutional Vitals: Temp Pulse Resp BP Pulse Ox 98.6 F 71 14 144/80 93 01/16/17 15:45 01/16/17 15:45 01/16/17 15:45 01/16/17 15:45 01/16/17 15:45 General appearance: Present: A&O X 3, answers questions appropriately - Respiratory Respiratory exam: Present: CTAB. Absent: accessory muscle use, rales, rhonchi, wheezes - Cardiovascular Cardiovascular exam: Present: RRR, +S1, +S2. Absent: diastolic murmur, gallop, rubs, systolic murmur - GI/Abdominal GI/Abdominal exam: Present: normal bowel sounds, soft, no peritoneal signs. Absent: distended, tenderness Internal Medicine: Result - Labs CBC & Chem 7: 01/13/17 09:53 01/13/17 06:57 - ABG Interpretation ABG results: PT/INR, D-dimer PT 12.8 Seconds (9.4-12.1) H 01/13/17 09:53 Consult Discharge Plan - Plan Referrals: Abdi Mederos, [employer] [Advanced Practice Nurse] - 02/26/17 1:00 pm NONE,PCP [Primary Care Provider] -
[2017-01-16] MEDS: Chlorhexidine Rinse 15 ML MOUTHWASH MM SCH (20:08)
[2017-01-16] MEDS: Sennosides/Docusate Sodium TABLET PO SCH (20:09)
[2017-01-16] MEDS: Heparin 25,000 UNIT/500 ML D5W 25,000 UNIT/500 ML MLS IVC SCH (20:18)
[2017-01-17] MEDS: Chlorhexidine Rinse 15 ML MOUTHWASH MM SCH ×2 (05:08→21:12)
[2017-01-17] MEDS ORDERED: Chlorhexidine Rinse 15 ML MOUTHWASH MM SCH (05:15)
[2017-01-17] MEDS ORDERED: *HR* Norepinephrine 4 MG/4 ML VIAL IVC ONE (06:57)
[2017-01-17] MEDS ORDERED: *HR* Phenylephrine 10 MG/ML VIAL ONE (06:57)
[2017-01-17] MEDS ORDERED: *HR* Rocuronium Bromide 50 MG/5 ML VIAL ONE ×2 (06:57→10:23)
[2017-01-17] MEDS ORDERED: Protamine Sulfate 250 MG/25 ML VIAL IVP ONE ×2 (06:58→13:23)
[2017-01-17] MEDS ORDERED: *HR* Etomidate 20 MG/10 ML AMPUL IVP ONE ×2 (06:58→13:22)
[2017-01-17] MEDS ORDERED: Famotidine 20 MG/2 ML VIAL ONE (06:58)
[2017-01-17] MEDS ORDERED: Tranexamic Acid 1,000 MG/10 ML VIAL ONE ×3 (06:58→13:23)
[2017-01-17] MEDS ORDERED: *HR* FentaNYL (PF) 1,000 MCG/20 ML VIAL ONE (07:07)
[2017-01-17] MEDS ORDERED: *HR* Midazolam HCl 5 MG/5 ML VIAL IVP ONE ×2 (07:07→13:30)
[2017-01-17] MEDS ORDERED: D5% in Water 250 ML ONE (07:08)
[2017-01-17] MEDS ORDERED: Verapamil 5 MG/2 ML VIAL ONE (07:13)
--- NOTE | 2017-01-17 09:50 | Anesthesia Procedures ---
Date of Encounter: 01/17/17 Time of Encounter: 08:50 Procedures: Anesthesia - Arterial Line Consent obtained: written consent Time out performed: Yes Sedation: Versed (mg): 2 Sedation: Fentanyl (mcg): 100 Supplemental Oxygen via Nasal Cannula (L/min): 2 Size (Gauge): 20 Length (inches): 1 3/4 Technique Used: sterile prep, guide wire technique, direct puncture technique Post-Procedure: line sutured into place, dry sterile dressing placed Patient tolerated procedure: well, no complications Complications: none Site: Radial L - Central Line Placement Right IJ Consent obtained: written consent Time out performed: Yes Patient placed on monitor/pulse ox: Yes MD prep: mask, gown, gloves Central line prep: Chlorhexidine scrub Ultrasound used for placement: Yes Technique: Seldinger Lumen Inserted: Introducer Post procedure: sutured in place, good blood return, all ports aspirated, flushed, capped, sterile dressing applied Patient tolerated procedure: well, no complications Complications: none Comments: intoducer placed easily, swan requires 3 attempts to wedge, no dysrhythmias, wedges approx 60cm
[2017-01-17] MEDS ORDERED: Nitroglycerin 25 MG/250 ML INFUS..BTL IVC ONE (11:34)
[2017-01-17] MEDS ORDERED: Albumin Human 5% 50.0 GM/1,000 ML VIAL ONE (11:35)
[2017-01-17] MEDS ORDERED: *HR* Dextrose 50 % in Water (Syg) 50 ML SYRINGE IVP PRN (13:12)
[2017-01-17] MEDS ORDERED: *HR* Promethazine 25 MG/ML VIAL IVP PRN (13:12)
[2017-01-17] MEDS ORDERED: Insulin Human Regular 300 UNIT/3 ML per UNIT IV PRN (13:12)
[2017-01-17 13:25] LABS: ABG Base Excess 4.2 mEq/L (-2.0 to 3.0); ABG HCO3 28.4 mEQ/L (21-27); ABG Oxygen Saturation 99 % (95-98); ABG PCO2 40 mmHg (35-45); ABG PH 7.46 pH Units (7.32-7.45); ABG PO2 125 mmHg (85-104); ABG TCO2 29.6 mEq/L (20-26); Blood Gas FiO2 60 %
[2017-01-17 13:27] LABS: Basophils % 0.1 %; Eosinophils # 0.1 K/mcL (0.0-0.6); Eosinophils % 1.2 %; Hematocrit 25.8 % (35.3-44.9); Immature Granulocytes % 1.2 % (0-4); Lymphocytes # 1.5 K/mcL (0.6-4.6); Lymphocytes % 20.1 %; Mean Corpuscular HGB Conc 33.3 g/dL (31.6-35.5); Mean Corpuscular Hemoglobin 30.8 pg (28.0-33.3); Mean Corpuscular Volume 92.5 fL (83.0-100.0); Mean Platelet Volume 9.7 fL (9.4-12.4); Monocytes # 0.4 K/mcL (0.0-1.3); Monocytes % 4.8 %; Neutrophils # 5.3 K/mcL (1.6-8.9); Red Blood Count 2.79 M/mcL (3.82-4.97); Red Cell Distribution Width 12.6 % (11.5-14.5); Segmented Neutrophils % 72.6 %
[2017-01-17 13:28] LABS: Hemoglobin 8.6 g/dL (11.5-15.4); Platelet Count 81 K/mcL (140-400)
--- NOTE | 2017-01-17 13:30 | Operative Note ---
Date of procedure: 01/17/17 Procedure in Detail: Preoperative diagnosis. Coronary artery disease. Postoperative diagnosis. Same. Procedure. Coronary artery bypass grafting 3 with the ARCE to the LAD, and saphenous vein grafts to obtuse marginal branch #1 and obtuse marginal branch # [address] Rosendo Figueroa. Asst. Pete Mclean. Anesthesia. Dr. Giovani Ruelas. Patient is a 66-year-old female who presented with a myocardial infarction. Cardiac catheterization revealed triple-vessel disease and she was referred for surgery. She was brought to the operating room where she was prepped and draped in standard fashion. The right greater saphenous vein was harvested from the right ankle up to the right groin. This was done through 3 small incisions using the scope. These incisions were subsequently closed with a deep layer of 0 Vicryl and a 2-0 Vicryl subcuticular stitch. Standard median sternotomy was performed. The left internal mammary artery retractor was inserted and the left internal mammary artery was harvested in standard fashion using the Bovie electrocoagulation. The mammary retractor was removed and the standard sternal financial services counselor was inserted. Pericardium was opened in the midline and suspended with 2-0 silk stay sutures. Double pursestring of 20 Surgilon was placed in the aorta for the aortic cannulation site. Purstring of 20 Surgilon was placed in the right atrial appendage for the venous uptake. The patient was heparinized. The aorta was cannulated without difficulty. 2 stage venous uptake cannula was inserted through the right atrial appendage. A pursestring of 3-0 silk was placed in the aorta and the cardioplegia needle was inserted through here. This was also used as an active and passive aortic vent. The patient was placed on cardioplegia bypass and cooled to 34. At this point the aorta was crossclamped and a liter of cardioplegia was given. Topical cooling with iced saline slush was also done. Attention was first turned to the circumflex. Obtuse marginal branch #2 was dissected free with the [place] blade and opened with a [place] blade and the Macias scissors. This had a lumen of 1-1/ 2 mm and was relatively free of disease. A standard end-to-side anastomosis was constructed using the saphenous vein and a 7-0 Prolene. When this is completed, the patient received an additional dose of antegrade cardioplegia. Attention was turned to the circumflex. Obtuse marginal branch #1 was dissected free with the [place] blade and opened with a [place] blade and the Macias scissors. This had a lumen of 1/2 mm with moderate diffuse disease. A standard end-to-side anastomosis was constructed using the saphenous vein and a 7-0 Prolene. When this was completed, the patient received her last dose of antegrade cardioplegia. Mammary pedicle was harvested. Tonsil clamp was placed distally and was divided with the Metzenbaum scissors. Distal end was tied off with a 2- 0 silk suture. The proximal end was trimmed and brought into the wound. The LAD was dissected free with the [place] blade and opened with a [place] blade and the Macias scissors. It had a lumen of 1-1/2 mm and was relatively free of disease. A standard end-to-side anastomosis was constructed using the mammary artery and a 7-0 Prolene. When this is completed, the previously placed bulldog clamp was removed. The pedicle was tacked to surface the heart using 2 interrupted 5-0 silk sutures. Cross-clamp was removed and rewarming was begun. Total cross- clamp time was 34 minutes. A side-biting clamp was placed on the aorta and the cardioplegia needle was removed. 2 holes were made in the aorta using a [place] blade and the 4.5 mm aortic punch. 2 proximal anastomoses were constructed in standard fashion using the saphenous veins and 5-0 Prolene's. When this is completed, the side-biting clamp was removed. Grafts were de-aired using a #25- gauge needle and the previously placed bulldog clamps were removed. Distal anastomoses were inspected and found to be hemostatic. Proximal anastomoses were marked with a marker from [employer]. A pair of atrial and ventricular pacing wires was left. A total of 4 chest tubes were left. A 32 right chest tube to the left pleural space. A 32 angle chest tube in the pericardial well. A 42 mediastinal chest tube. A 32 right chest tube in the right pleural space. I did place some FloSeal along the distal and proximal anastomosis. Patient weaned from bypass requiring no pressors for support. She was decannulated and protamine was given. Hemostasis was good and the hemodynamics were good. Pericardium was left open. Sternum was closed with #7 sternal wires in simple [id number] fashion. Fascia was run with a #1 Vicryl. Subcutaneous tissues tissues with a 2-0 Vicryl. Skin was closed with a 3-0 Vicryl subarticular stitch. The patient tolerated procedure well and was returned intensive care unit in satisfactory and stable condition. Total bypass time was 85 minutes. Total cross-clamp time was 44 minutes. She had been cooled to 34.
[2017-01-17 13:32] LABS: INR 1.6
[2017-01-17 13:34] LABS: BUN/Creatinine Ratio 11 (6-26); Blood Urea Nitrogen 7 mg/dL (7-20); Calcium 8.5 mg/dL (8.6-10.8); Carbon Dioxide 28 mEq/L (19-29); Chloride 104 mEq/L (98-109); Glucose 63 mg/dL (70-99); Magnesium 2.5 mg/dL (1.6-2.6); Osmolality,Calculated 284 (280-300); Potassium 3.2 mEq/L (3.5-4.5); Sodium 139 mEq/L (136-145); eGFR For African Americans > 60 (> 60); eGFR For Non-African Americans > 60 (> 60)
[2017-01-17 13:36] LABS: Activated Partial Thrombo Time 33.6 Seconds (26.0-36.0)
[2017-01-17] MEDS: Nitroglycerin 25 MG/250 ML INFUS..BTL IVC SCH (13:52)
[2017-01-17] MEDS: niCARdipine 40 MG/200 ML MLS IVC SCH (14:02)
[2017-01-17] MEDS: amLODIPine 5 MG TABLET PO SCH (14:47)
[2017-01-17] MEDS: Aspirin 81 MG TAB.CHEW PO SCH (14:47)
[2017-01-17] MEDS: Sennosides/Docusate Sodium TABLET PO SCH ×2 (14:48→21:13)
[2017-01-17 14:50] LABS: ABG PCO2 57 mmHg (35-45); ABG PH 7.33 pH Units (7.32-7.45); ABG PO2 132 mmHg (85-104)
[2017-01-17 14:51] LABS: ABG Base Excess 3.2 mEq/L (-2.0 to 3.0); ABG Glucose 106 mg/dL (60-95); ABG HCO3 30.1 mEQ/L (21-27); ABG Ionized Calcium 1.08 mmol/L (1.15-1.35); ABG Oxygen Saturation 99 % (95-98); ABG TCO2 31.8 mEq/L (20-26)
[2017-01-17 14:53] LABS: ABG Base Excess 5.6 mEq/L (-2.0 to 3.0); ABG Glucose 139 mg/dL (60-95); ABG HCO3 31.1 mEQ/L (21-27); ABG Ionized Calcium 1.14 mmol/L (1.15-1.35); ABG Oxygen Saturation 98 % (95-98); ABG PCO2 49 mmHg (35-45); ABG PH 7.41 pH Units (7.32-7.45); ABG PO2 99 mmHg (85-104); ABG TCO2 32.6 mEq/L (20-26)
[2017-01-17 14:55] LABS: ABG HCO3 29.1 mEQ/L (21-27); ABG Oxygen Saturation 100 % (95-98); ABG PCO2 40 mmHg (35-45); ABG PH 7.47 pH Units (7.32-7.45); ABG PO2 373 mmHg (85-104); ABG TCO2 30.3 mEq/L (20-26)
[2017-01-17] MEDS: 0.9 % Sodium Chloride 1,000 ML IVC SCH (14:55)
[2017-01-17 14:56] LABS: ABG Glucose 176 mg/dL (60-95); ABG Ionized Calcium 0.91 mmol/L (1.15-1.35)
[2017-01-17 14:57] LABS: ABG PCO2 39 mmHg (35-45); ABG PH 7.46 pH Units (7.32-7.45)
[2017-01-17 14:58] LABS: ABG Base Excess 3.6 mEq/L (-2.0 to 3.0); ABG Glucose 207 mg/dL (60-95); ABG HCO3 27.7 mEQ/L (21-27); ABG Oxygen Saturation 100 % (95-98); ABG PO2 458 mmHg (85-104); ABG TCO2 28.9 mEq/L (20-26)
[2017-01-17 15:00] LABS: ABG Base Excess 6.2 mEq/L (-2.0 to 3.0); ABG HCO3 30.6 mEQ/L (21-27); ABG PCO2 43 mmHg (35-45); ABG PH 7.46 pH Units (7.32-7.45); ABG PO2 365 mmHg (85-104); ABG TCO2 31.9 mEq/L (20-26)
[2017-01-17 15:01] LABS: ABG Glucose 127 mg/dL (60-95); ABG Ionized Calcium 0.97 mmol/L (1.15-1.35); ABG Oxygen Saturation 100 % (95-98)
[2017-01-17] MEDS: Potassium Chloride 40 MEQ/200 ML BAG IVPB PRN ×2 (15:29→16:24)
[2017-01-17] MEDS: Nicotine 21 MG PATCH.TD24 TD SCH (17:20)
[2017-01-17 17:24] LABS: ABG Base Excess 4.2 mEq/L (-2.0 to 3.0); ABG HCO3 28.4 mEQ/L (21-27); ABG Oxygen Saturation 92 % (95-98); ABG PCO2 40 mmHg (35-45); ABG PO2 61 mmHg (85-104); ABG TCO2 29.6 mEq/L (20-26); Blood Gas FiO2 40 %; Blood Gas PEEP 5 cm H2O; Blood Gas Respiration Rate 14; Blood Gas VT 500 cc
[2017-01-17] MEDS: Insulin Human Regular 100 UNIT in 0.9 % Sodium Chloride 100 ML IVC SCH ×2 (17:24→17:59)
[2017-01-17 17:25] LABS: ABG PH 7.46 pH Units (7.32-7.45)
[2017-01-17] MEDS: ceFAZolin 2,000 MG in D5% in Water 100 ML IVPB SCH (18:26)
[2017-01-17] MEDS: *HR* Morphine 2 MG/ML SYRINGE IVP PRN ×3 (18:48→22:25)
[2017-01-17] MEDS: Heparin 25,000 UNIT/500 ML D5W 25,000 UNIT/500 ML MLS IVC SCH ×2 (19:24→19:25)
[2017-01-17 21:56] LABS: ABG Base Excess 3.5 mEq/L (-2.0 to 3.0); ABG HCO3 28.5 mEQ/L (21-27); ABG Oxygen Saturation 96 % (95-98); ABG PCO2 44 mmHg (35-45); ABG PO2 83 mmHg (85-104); ABG TCO2 29.9 mEq/L (20-26); Blood Gas FiO2 50 %
[2017-01-17 21:57] LABS: ABG PH 7.42 pH Units (7.32-7.45)
[2017-01-18] MEDS: ceFAZolin 2,000 MG in D5% in Water 100 ML IVPB SCH (01:19)
[2017-01-18 02:07] LABS: ABG HCO3 27.9 mEQ/L (21-27); ABG Oxygen Saturation 96 % (95-98); ABG PCO2 43 mmHg (35-45); ABG PO2 79 mmHg (85-104); ABG TCO2 29.2 mEq/L (20-26); Blood Gas FiO2 50 %
[2017-01-18 02:10] LABS: ABG PH 7.42 pH Units (7.32-7.45)
[2017-01-18 04:26] LABS: Basophils % 0.2 %; Hematocrit 31.7 % (35.3-44.9); Immature Granulocytes % 0.6 % (0-4); Immature Platelets 5.5 % (1.1-6.1); Lymphocytes # 0.8 K/mcL (0.6-4.6); Lymphocytes % 7.8 %; Mean Corpuscular HGB Conc 32.8 g/dL (31.6-35.5); Mean Corpuscular Hemoglobin 30.5 pg (28.0-33.3); Mean Platelet Volume 10.1 fL (9.4-12.4); Monocytes # 0.9 K/mcL (0.0-1.3); Monocytes % 9.6 %; Platelet Count 179 K/mcL (140-400); Red Blood Count 3.41 M/mcL (3.82-4.97); Red Cell Distribution Width 13.2 % (11.5-14.5); Segmented Neutrophils % 81.8 %
[2017-01-18 04:31] LABS: Hemoglobin 10.4 g/dL (11.5-15.4); INR 1.2; Prothrombin Time 13.4 Seconds (9.4-12.1)
[2017-01-18 04:33] LABS: Activated Partial Thrombo Time 29.8 Seconds (26.0-36.0)
[2017-01-18 04:40] LABS: BUN/Creatinine Ratio 14 (6-26); Blood Urea Nitrogen 9 mg/dL (7-20); Calcium 8.6 mg/dL (8.6-10.8); Carbon Dioxide 28 mEq/L (19-29); Chloride 107 mEq/L (98-109); Glucose 106 mg/dL (70-99); Magnesium 2.3 mg/dL (1.6-2.6); Osmolality,Calculated 293 (280-300); eGFR For African Americans > 60 (> 60); eGFR For Non-African Americans > 60 (> 60)
[2017-01-18 04:54] LABS: Sodium 142 mEq/L (136-145)
[2017-01-18] MEDS: *HR* Morphine 2 MG/ML SYRINGE IVP PRN (04:54)
[2017-01-18 05:15] LABS: ABG HCO3 27.9 mEQ/L (21-27); ABG Oxygen Saturation 97 % (95-98); ABG PCO2 43 mmHg (35-45); ABG PO2 89 mmHg (85-104); ABG TCO2 29.2 mEq/L (20-26); Blood Gas FiO2 50 %
[2017-01-18 05:17] LABS: ABG PH 7.42 pH Units (7.32-7.45)
[2017-01-18] MEDS: 0.9 % Sodium Chloride 1,000 ML IVC SCH ×2 (06:41→16:30)
--- NOTE | 2017-01-18 07:12 | Cardiothoracic Progress Note ---
Date of Encounter: 01/18/17 Time of Encounter: 07:11 - Assessment and plan (1) Elevated troponin Current Visit: Yes Status: Acute We will work on extubating the patient this morning. Discontinue her Kite-Heather catheter. - Subjective Interval history: The patient is still intubated. Vital Signs, Last 4 Hours Temp Pulse Resp BP Pulse Ox 01/18/17 06:00 77 22 137/72 98 01/18/17 05:25 15 130/64 97 01/18/17 05:00 76 15 135/70 98 01/18/17 04:22 21 138/70 100 01/18/17 04:00 75 01/18/17 03:59 98.9 F 75 17 128/64 99 Clinical Data, last 8 Hours Output, Chest Tube Drainage 40 Amount [Mediastinal #4] Output, Chest Tube Drainage 0 Amount [Mediastinal #4] Output, Chest Tube Drainage 0 Amount [Mediastinal #4] Output, Chest Tube Drainage 0 Amount [Mediastinal #4] Output, Chest Tube Drainage 10 Amount [Mediastinal #4] Output, Chest Tube Drainage 0 Amount [Mediastinal #4] Output, Chest Tube Drainage 20 Amount [Mediastinal #4] Output, Chest Tube Drainage 5 Amount [Mediastinal #3] Output, Chest Tube Drainage 0 Amount [Mediastinal #3] Output, Chest Tube Drainage 0 Amount [Mediastinal #3] Output, Chest Tube Drainage 0 Amount [Mediastinal #3] Output, Chest Tube Drainage 5 Amount [Mediastinal #3] Output, Chest Tube Drainage 0 Amount [Mediastinal #3] Output, Chest Tube Drainage 0 Amount [Mediastinal #3] Output, Chest Tube Drainage 20 Amount [Mediastinal #2] Output, Chest Tube Drainage 0 Amount [Mediastinal #2] Output, Chest Tube Drainage 10 Amount [Mediastinal #2] Output, Chest Tube Drainage 0 Amount [Mediastinal #2] Output, Chest Tube Drainage 10 Amount [Mediastinal #2] Output, Chest Tube Drainage 0 Amount [Mediastinal #2] Output, Chest Tube Drainage 10 Amount [Mediastinal #2] Output, Chest Tube Drainage 0 Amount [Mediastinal #1] Output, Chest Tube Drainage 0 Amount [Mediastinal #1] Output, Chest Tube Drainage 5 Amount [Mediastinal #1] Output, Chest Tube Drainage 0 Amount [Mediastinal #1] Output, Chest Tube Drainage 5 Amount [Mediastinal #1] Output, Chest Tube Drainage 0 Amount [Mediastinal #1] Output, Chest Tube Drainage 10 Amount [Mediastinal #1] Weight 01/16/17 01/17/17 01/18/17 23:59 23:59 23:59 Weight 71.8 kg Lungs are clear to percussion and auscultation. Heart is in a normal sinus rhythm. All incisions are healing well without signs of infection and the sternum is stable. Tube drainage is minimal. - Labs 01/18/17 04:10 01/18/17 04:10 Lab Results, Last 24 hours 01/17/17 01/17/17 01/17/17 13:05 13:05 13:05 WBC 7.3 Hgb 8.6 L D Hct 25.8 L Plt Count 81 L D INR 1.6 APTT 33.6 D Sodium 139 Potassium 3.2 L Chloride 104 Carbon Dioxide 28 BUN 7 Creatinine 0.62 Glucose 63 L Calcium 8.5 L Magnesium 2.5 01/17/17 01/18/17 01/18/17 21:21 04:10 04:10 WBC 9.7 Hgb 10.4 L D Hct 31.7 L Plt Count 179 D INR 1.2 APTT 29.8 Sodium Potassium 4.0 Chloride Carbon Dioxide BUN Creatinine Glucose Calcium Magnesium 01/18/17 04:10 WBC Hgb Hct Plt Count INR APTT Sodium 142 Potassium 4.0 Chloride 107 Carbon Dioxide 28 BUN 9 Creatinine 0.65 Glucose 106 H Calcium 8.6 Magnesium 2.3 - VTE Documentation of Mechanical Device: Graduated compression elastic hosiery Consult Discharge Plan - Plan Referrals: Abdi Mederos, CAN DRAGGER [Advanced Practice Nurse] - 02/26/17 1:00 pm NONE,PCP [Primary Care Provider] -
[2017-01-18] MEDS ORDERED: *HR* LORazepam 1 MG TABLET PO PRN (07:19)
[2017-01-18] MEDS: Aspirin 81 MG TAB.CHEW PO SCH (07:41)
[2017-01-18] MEDS: amLODIPine 5 MG TABLET PO SCH (07:41)
[2017-01-18] MEDS: Nicotine 21 MG PATCH.TD24 TD SCH (07:42)
[2017-01-18] MEDS: Sennosides/Docusate Sodium TABLET PO SCH ×2 (07:43→20:33)
[2017-01-18] MEDS: Chlorhexidine Rinse 15 ML MOUTHWASH MM SCH ×2 (07:43→20:34)
[2017-01-18] MEDS: *HR* OxyCODONE/APAP 5/325 TABLET PO PRN ×3 (08:38→23:26)
[2017-01-18 08:53] LABS: ABG Base Excess 1.6 mEq/L (-2.0 to 3.0); ABG HCO3 27.2 mEQ/L (21-27); ABG Oxygen Saturation 94 % (95-98); ABG PCO2 46 mmHg (35-45); ABG PH 7.38 pH Units (7.32-7.45); ABG PO2 74 mmHg (85-104); ABG TCO2 28.6 mEq/L (20-26)
--- NOTE | 2017-01-18 15:26 | Electrocardiograph Report ---
[place] [id number] Test Date: 2017-01-17 Pat Name: Le Oconnor Department: 109 Room: [facility] Gender: F Billing Spec: OCTAVIA : 1950 Requested By: Rosendo Figeuroa Order Number: [id number] Reading MD: Pete Waters Measurements Intervals Kathryn Rate: 83 P: 17 OK: 139 QRS: 32 QRSD: 89 T: 65 QT: 418 QTc: 458 Interpretive Statements SINUS RHYTHM Electronically Signed On 01-18-2017 15:24:40 EDT by Pete Waters
[2017-01-18] MEDS ORDERED: D5% in Water 1,000 ML IVC PRN (16:32)
[2017-01-18] MEDS ORDERED: Dextrose Gel 15 GM PO PRN ×2 (16:32)
[2017-01-18] MEDS ORDERED: *HR* Dextrose 50 % in Water (Syg) 50 ML SYRINGE IVP PRN (16:32)
[2017-01-18] MEDS: Nitroglycerin 25 MG/250 ML INFUS..BTL IVC SCH ×3 (19:25→23:38)
[2017-01-18] MEDS: Insulin Human Regular 100 UNIT in 0.9 % Sodium Chloride 100 ML IVC SCH (19:25)
[2017-01-18] MEDS: niCARdipine 40 MG/200 ML MLS IVC SCH ×3 (19:25→19:27)
[2017-01-18] MEDS: Nitroglycerin 1 INCH/GM PACKET TP SCH (19:29)
[2017-01-18] MEDS ORDERED: Insulin LISPRO 300 UNITS/3 ML VIAL SQ SCH (21:00)
[2017-01-19 04:09] LABS: Basophils % 0.2 %; Eosinophils % 0.4 %; Hematocrit 30.1 % (35.3-44.9); Hemoglobin 9.7 g/dL (11.5-15.4); Immature Granulocytes % 0.5 % (0-4); Lymphocytes # 1.1 K/mcL (0.6-4.6); Lymphocytes % 10.9 %; Mean Corpuscular HGB Conc 32.2 g/dL (31.6-35.5); Mean Corpuscular Hemoglobin 31.2 pg (28.0-33.3); Mean Corpuscular Volume 96.8 fL (83.0-100.0); Mean Platelet Volume 10.7 fL (9.4-12.4); Monocytes # 1.1 K/mcL (0.0-1.3); Monocytes % 10.5 %; Neutrophils # 7.9 K/mcL (1.6-8.9); Platelet Count 161 K/mcL (140-400); Red Blood Count 3.11 M/mcL (3.82-4.97); Red Cell Distribution Width 13.3 % (11.5-14.5); Segmented Neutrophils % 77.5 %
[2017-01-19 04:18] LABS: BUN/Creatinine Ratio 19 (6-26); Blood Urea Nitrogen 11 mg/dL (7-20); Calcium 8.9 mg/dL (8.6-10.8); Carbon Dioxide 27 mEq/L (19-29); Chloride 106 mEq/L (98-109); Glucose 114 mg/dL (70-99); Osmolality,Calculated 288 (280-300); Potassium 4.1 mEq/L (3.5-4.5); Sodium 139 mEq/L (136-145); eGFR For African Americans > 60 (> 60); eGFR For Non-African Americans > 60 (> 60)
[2017-01-19] MEDS: 0.9 % Sodium Chloride 1,000 ML IVC SCH (06:30)
[2017-01-19] MEDS: niCARdipine 40 MG/200 ML MLS IVC SCH (06:30)
[2017-01-19] MEDS ORDERED: Insulin LISPRO 300 UNITS/3 ML VIAL SQ SCH ×3 (07:30→21:00)
[2017-01-19] MEDS: *HR* Morphine 2 MG/ML SYRINGE IVP PRN (07:35)
--- NOTE | 2017-01-19 08:05 | Cardiothoracic Progress Note ---
Date of Encounter: 01/19/17 Time of Encounter: 08:04 - Assessment and plan (1) CAD (coronary artery disease) Current Visit: Yes Status: Acute The patient is recovering well from her CABG 3. The chest tube drainage decreased significantly and the chest tubes were removed. The patient will be transferred to the stepdown unit when a bed is available. The assessment and plan as outlined above was discussed with the patient and/or family members who expressed understanding and agreement. All questions were answered. Qualifiers: Coronary Disease-Associated Artery/Lesion type: [place] artery [place] vs. transplanted heart: [place] heart Associated angina: with stable angina Qualified Code(s): I25.118 - Atherosclerotic heart disease of [place] coronary artery with other forms of angina pectoris (2) NSTEMI (non-ST elevated myocardial infarction) Current Visit: Yes Status: Acute The patient remained hemodynamically stable overnight. She has no complaints of his pain. She is scheduled for CABG by Dr. Rosendo Figueroa in the morning. The assessment and plan as outlined above was discussed with the patient and/or family members who expressed understanding and agreement. All questions were answered. - Subjective Procedure(s) Performed: POD#2 S/P CABG3 Interval history: The patient remained hemodynamic stable overnight. She has no complaints of chest pain. Vital Signs, Last 4 Hours Pulse Resp BP Pulse Ox 01/19/17 07:25 69 20 129/78 92 01/19/17 06:00 69 12 110/73 95 01/19/17 05:00 68 14 127/78 98 01/19/17 04:07 18 117/80 93 Oxgyen Flow Rate Oxygen Flow Rate (LPM) 4 Clinical Data, last 8 Hours Output, Chest Tube Drainage 10 Amount [Mediastinal #4] Output, Chest Tube Drainage 12 Amount [Mediastinal #2] Output, Chest Tube Drainage 14 Amount [Mediastinal #1] Weight 01/17/17 01/18/17 01/19/17 23:59 23:59 23:59 Weight 71.8 kg 76.4 kg - Physical Examination General: Conversant, No Apparent Distress Neck: No JVD, Normal carotid pulses Cardiac: Reg Rate and Rhythm, Normal S1 and S2, No Murmur Incision: No signs of infection, Dry/intact dressing Sternum: Stable Chest tubes: Minimal drainage, Other (No air leak.) Lungs: Normal Breath Sounds, No Wheeze, Rales, Rhonchi Neuro: Alert and responsive, No focal deficits noted Vascular: Normal capillary refill Extremities: No Clubbing, No Cyanosis, No Edema - Labs 01/19/17 03:45 01/19/17 03:45 Lab Results, Last 24 hours 01/19/17 01/19/17 03:45 03:45 WBC 10.2 Hgb 9.7 L Hct 30.1 L Plt Count 161 Sodium 139 Potassium 4.1 Chloride 106 Carbon Dioxide 27 BUN 11 Creatinine 0.57 Glucose 114 H Calcium 8.9 - VTE Documentation of Mechanical Device: Intermittent pneumatic compression device Consult Discharge Plan - Plan Referrals: Abdi Mederos, ORDER DESK CALLER [Advanced Practice Nurse] - 02/26/17 1:00 pm NONE,PCP [Primary Care Provider] -
[2017-01-19] MEDS: *HR* OxyCODONE/APAP 5/325 TABLET PO PRN ×3 (08:36→18:17)
[2017-01-19] MEDS: Chlorhexidine Rinse 15 ML MOUTHWASH MM SCH ×2 (09:02→21:07)
[2017-01-19] MEDS: Aspirin 81 MG TAB.CHEW PO SCH (09:02)
[2017-01-19] MEDS: Nicotine 21 MG PATCH.TD24 TD SCH (09:10)
[2017-01-19] MEDS: amLODIPine 5 MG TABLET PO SCH (09:42)
[2017-01-19] MEDS ORDERED: Insulin Human Regular 300 UNIT/3 ML per UNIT IV PRN (10:11)
[2017-01-19] MEDS ORDERED: Naloxone 0.4 MG/ML INJ IVP PRN (10:11)
[2017-01-19] MEDS ORDERED: *HR* LORazepam 1 MG TABLET PO PRN (10:11)
[2017-01-19] MEDS ORDERED: *HR* Morphine 2 MG/ML SYRINGE IVP PRN ×2 (10:11)
[2017-01-19] MEDS ORDERED: Ondansetron 4 MG/2 ML VIAL IVP PRN (10:11)
[2017-01-19] MEDS ORDERED: *HR* Dextrose 50 % in Water (Syg) 50 ML SYRINGE IVP PRN ×3 (10:11)
[2017-01-19] MEDS ORDERED: D5% in Water 1,000 ML IVC PRN (10:11)
[2017-01-19] MEDS ORDERED: Nitroglycerin 0.4 MG TAB.SUBL SL PRN (10:11)
[2017-01-19] MEDS ORDERED: Ipratropium/Albuterol Neb 3 ML IH PRN (10:11)
[2017-01-19] MEDS ORDERED: Dextrose Gel 15 GM PO PRN ×4 (10:11)
[2017-01-19] MEDS: Furosemide 20 MG/2 ML VIAL IVP SCH ×2 (11:49→16:53)
[2017-01-19] MEDS: Insulin LISPRO 300 UNITS/3 ML VIAL SQ SCH ×3 (11:49→21:08)
--- NOTE | 2017-01-19 13:42 | Cardiothoracic Progress Note ---
Date of Encounter: 01/19/17 Time of Encounter: 13:40 - Assessment and plan (1) CAD (coronary artery disease) Current Visit: Yes Status: Acute The patient is recovering well from her CABG3. The chest tube drainage decreased significantly and the chest tubes were removed. The patient will be transferred to the stepdown unit when a bed is available. The assessment and plan as outlined above was discussed with the patient and/or family members who expressed understanding and agreement. All questions were answered. Qualifiers: Coronary Disease-Associated Artery/Lesion type: [place] artery [place] vs. transplanted heart: [place] heart Associated angina: with stable angina Qualified Code(s): I25.118 - Atherosclerotic heart disease of [place] coronary artery with other forms of angina pectoris (2) NSTEMI (non-ST elevated myocardial infarction) Current Visit: Yes Status: Acute The patient remained hemodynamically stable overnight. She has no complaints of his pain. She is scheduled for CABG by Dr. Rosendo Figueroa in the morning. The assessment and plan as outlined above was discussed with the patient and/or family members who expressed understanding and agreement. All questions were answered. - Subjective Procedure(s) Performed: POD#2 S/P CABG3 Interval history: The patient remained hemodynamic stable overnight. She has no complaints of chest pain. Vital Signs, Last 4 Hours Temp Pulse Resp BP Pulse Ox 01/19/17 11:58 16 93 01/19/17 10:52 67 84/57 01/19/17 10:40 70 70/54 01/19/17 10:16 68 01/19/17 10:10 97.5 F L 66 18 80/57 94 Oxgyen Flow Rate Oxygen Flow Rate (LPM) 5 Clinical Data, last 8 Hours Output, Urine Amount [Urethral 50 ([place])] Weight 01/17/17 01/18/17 01/19/17 23:59 23:59 23:59 Weight 71.8 kg 76.4 kg - Physical Examination General: Conversant, No Apparent Distress Neck: No JVD, Normal carotid pulses Cardiac: Reg Rate and Rhythm, Normal S1 and S2, No Murmur Incision: No signs of infection, Dry/intact dressing Sternum: Stable Chest tubes: Minimal drainage, Other (No air leak.) Lungs: Normal Breath Sounds, No Wheeze, Rales, Rhonchi Neuro: Alert and responsive, No focal deficits noted Vascular: Normal capillary refill Skin: No rashes noted on visualized skin Extremities: No Clubbing, No Cyanosis, No Edema - Labs 01/19/17 03:45 01/19/17 03:45 Lab Results, Last 24 hours 01/19/17 01/19/17 03:45 03:45 WBC 10.2 Hgb 9.7 L Hct 30.1 L Plt Count 161 Sodium 139 Potassium 4.1 Chloride 106 Carbon Dioxide 27 BUN 11 Creatinine 0.57 Glucose 114 H Calcium 8.9 - VTE Documentation of Mechanical Device: Graduated compression elastic hosiery Consult Discharge Plan - Plan Referrals: Abdi Mederos CNP [Advanced Practice Nurse] - 02/26/17 1:00 pm NONE,PCP [Primary Care Provider] - Rosendo Figueroa MD [Partnered Physician] - 03/08/17 1:15 pm Júnior Graham MD [Non-Partnered Physician] - 02/15/17 9:15 am (Sent email to Stacey Ross to see if we can get this appointment sooner)
[2017-01-19] MEDS: *HR* Heparin 5,000 UNIT/ML VIAL SQ SCH (18:17)
[2017-01-20] MEDS: *HR* OxyCODONE/APAP 5/325 TABLET PO PRN ×6 (00:12→20:49)
[2017-01-20] MEDS: *HR* Heparin 5,000 UNIT/ML VIAL SQ SCH ×2 (04:38→16:42)
[2017-01-20 05:01] LABS: Eosinophils % 0.4 %; Hematocrit 26.8 % (35.3-44.9); Hemoglobin 8.3 g/dL (11.5-15.4); Immature Granulocytes % 0.6 % (0-4); Lymphocytes % 11.9 %; Mean Corpuscular Hemoglobin 30.3 pg (28.0-33.3); Mean Corpuscular Volume 97.8 fL (83.0-100.0); Monocytes % 11.4 %; Platelet Count 168 K/mcL (140-400); Red Blood Count 2.74 M/mcL (3.82-4.97); Red Cell Distribution Width 13.3 % (11.5-14.5); Segmented Neutrophils % 75.5 %
[2017-01-20 05:02] LABS: Basophils % 0.2 %; Lymphocytes # 1.2 K/mcL (0.6-4.6); Monocytes # 1.1 K/mcL (0.0-1.3); Neutrophils # 7.5 K/mcL (1.6-8.9)
[2017-01-20 05:15] LABS: BUN/Creatinine Ratio 28 (6-26); Blood Urea Nitrogen 20 mg/dL (7-20); Calcium 9.2 mg/dL (8.6-10.8); Carbon Dioxide 27 mEq/L (19-29); Chloride 105 mEq/L (98-109); Glucose 109 mg/dL (70-99); Osmolality,Calculated 287 (280-300); Potassium 4.4 mEq/L (3.5-4.5); Sodium 137 mEq/L (136-145); eGFR For African Americans > 60 (> 60); eGFR For Non-African Americans > 60 (> 60)
[2017-01-20] MEDS: Insulin LISPRO 300 UNITS/3 ML VIAL SQ SCH ×4 (07:36→20:49)
[2017-01-20] MEDS: Chlorhexidine Rinse 15 ML MOUTHWASH MM SCH ×2 (08:08→20:49)
[2017-01-20] MEDS: Furosemide 20 MG/2 ML VIAL IVP SCH ×2 (08:08→16:42)
--- NOTE | 2017-01-20 08:56 | Cardiothoracic Progress Note ---
Date of Encounter: 01/20/17 Time of Encounter: 08:54 - Assessment and plan (1) CAD (coronary artery disease) Current Visit: Yes Status: Acute The patient is recovering well from her CABG3. She will begin ambulating the hallways today. The assessment and plan as outlined above was discussed with the patient and/or family members who expressed understanding and agreement. All questions were answered. Qualifiers: Coronary Disease-Associated Artery/Lesion type: [place] artery [place] vs. transplanted heart: [place] heart Associated angina: with stable angina Qualified Code(s): I25.118 - Atherosclerotic heart disease of [place] coronary artery with other forms of angina pectoris (2) NSTEMI (non-ST elevated myocardial infarction) Current Visit: Yes Status: Acute The assessment and plan as outlined above was discussed with the patient and/or family members who expressed understanding and agreement. All questions were answered. - Subjective Procedure(s) Performed: POD#3 S/P CABG3 Interval history: The patient is recovering well from her CABG3. She is sitting in a chair at the bedside and has no complaints. Vital Signs, Last 4 Hours Temp Pulse Resp BP Pulse Ox 01/20/17 08:27 16 115/80 92 01/20/17 08:10 74 01/20/17 07:31 97.9 F 76 16 115/80 92 01/20/17 05:16 14 94 Oxgyen Flow Rate Oxygen Flow Rate (LPM) 5 Clinical Data, last 8 Hours Output, Urine Amount 0 Output, Urine Amount 200 Weight 01/18/17 01/19/17 01/20/17 23:59 23:59 23:59 Weight 76.4 kg 75.9 kg - Physical Examination General: Conversant, No Apparent Distress Cardiac: Reg Rate and Rhythm, Normal S1 and S2, No Murmur Incision: No signs of infection, Dry/intact dressing Sternum: Stable Pacing Wires: In place Lungs: Normal Breath Sounds, No Wheeze, Rales, Rhonchi Neuro: Alert and responsive, No focal deficits noted Vascular: Normal capillary refill Extremities: No Clubbing, No Cyanosis, No Edema - Labs 01/20/17 04:40 01/20/17 04:40 Lab Results, Last 24 hours 01/20/17 01/20/17 04:40 04:40 WBC 9.9 Hgb 8.3 L Hct 26.8 L Plt Count 168 Sodium 137 Potassium 4.4 Chloride 105 Carbon Dioxide 27 BUN 20 Creatinine 0.71 Glucose 109 H Calcium 9.2 - VTE Documentation of Mechanical Device: Graduated compression elastic hosiery Consult Discharge Plan - Plan Referrals: Abdi Mederos CNP [Advanced Practice Nurse] - 02/26/17 1:00 pm NONE,PCP [Primary Care Provider] - Rosendo Figueroa MD [Partnered Physician] - 03/08/17 1:15 pm Júnior Graham MD [Non-Partnered Physician] - 02/15/17 9:15 am (Sent email to Stacey Ross to see if we can get this appointment sooner)
[2017-01-20] MEDS ORDERED: Aspirin 325 MG TABLET PO SCH (09:00)
[2017-01-20] MEDS ORDERED: Nicotine 21 MG PATCH.TD24 TD SCH (09:00)
--- NOTE | 2017-01-20 16:50 | Internal Med Progress Note ---
Date of Encounter: 01/20/17 Time of Encounter: 16:48 - Assessment and plan (1) CAD (coronary artery disease) Current Visit: Yes Status: Acute Assessment and plan: s/p CABG cont Metoprolol and Statin Pt is not on ASA currently..will check with CTS Cont current excellent care by primary team CTS Since pt does not have lot of other medical problems, will sign off on her care. Qualifiers: Coronary Disease-Associated Artery/Lesion type: [place] artery [place] vs. transplanted heart: [place] heart Associated angina: with stable angina Qualified Code(s): I25.118 - Atherosclerotic heart disease of [place] coronary artery with other forms of angina pectoris (2) Acute respiratory failure with hypoxia Current Visit: Yes Status: Acute Assessment and plan: Could be due to little volume overload and physical deconditoning Not in COPD exacerbation cont gentle diuresis cont Albuterol neb PRN no need of steroids encourage frequent IS (3) NSTEMI (non-ST elevated myocardial infarction) Current Visit: Yes Status: Acute (4) Accelerated hypertension Current Visit: Yes Status: Acute Assessment and plan: stable with current meds (5) HLD (hyperlipidemia) Current Visit: Yes Status: Chronic Assessment and plan: on statin Qualifiers: Hyperlipidemia type: unspecified Qualified Code(s): E78.5 - Hyperlipidemia , unspecified (6) Hypothyroidism Current Visit: Yes Status: Chronic Assessment and plan: Continue levothyroxine. Qualifiers: Hypothyroidism type: unspecified Qualified Code(s): E03.9 - Hypothyroidism , unspecified (7) Anemia Current Visit: Yes Status: Acute Assessment and plan: mostly per op blood loss so far stable Hb@ 8.3 cont close monitoring Qualifiers: Qualified Code(s): D64.9 - Anemia, unspecified (8) Tobacco dependence Current Visit: Yes Status: Acute Assessment and plan: Counseled to quit pt preferred to do as cold turkey - Subjective Interval history: This is a 66 y/o F with known PMH of HTN, HLD and chronic tobacco dependence pt admitted with acute chest pain with NSTEMI. Pt had LHC done which showed severe tripple vessel disease. Pt was evaluated by CTS and did CABG on 01/17/17. Post operative pt has been doing well. She is still on 3 lit O2. denied any CP. Does have mild SOB / BO. - Constitutional Vitals: Temp Pulse Resp BP Pulse Ox 98.5 F 77 19 107/66 94 01/20/17 16:21 01/20/17 16:21 01/20/17 16:21 01/20/17 16:21 01/20/17 16:21 General appearance: Present: A&O X 3, answers questions appropriately - Head Head exam: Present: atraumatic, normal inspection - Respiratory Respiratory exam: Present: decreased breath sounds, wheezes. Absent: respiratory distress, rhonchi - Cardiovascular Cardiovascular exam: Present: RRR, +S1, +S2. Absent: systolic murmur - GI/Abdominal GI/Abdominal exam: Present: soft. Absent: rebound, rigid, tenderness - Extremities Exam Extremities exam: Present: pedal edema. Absent: calf tenderness, tenderness - Neurological Exam Neurological exam: Present: alert, oriented X3 - Psychiatric Psychiatric exam: Present: normal affect, normal mood Internal Medicine: Result - Labs CBC & Chem 7: 01/20/17 04:40 01/20/17 04:40 Labs: Short CBC 01/20/17 Range/Units 04:40 WBC 9.9 (4.3-11.1) K/mcL Hgb 8.3 L (11.5-15.4) g/dL Hct 26.8 L (35.3-44.9) % Plt Count 168 (140-400) K/mcL Neutrophils # 7.5 (1.6-8.9) K/mcL BMP 01/20/17 04:40 Sodium 137 Potassium 4.4 Chloride 105 Carbon Dioxide 27 BUN 20 Creatinine 0.71 Glucose 109 H Calcium 9.2 - ABG Interpretation ABG results: ABG ABG pH 7.38 pH Units (7.32-7.45) 01/18/17 08:41 ABG pCO2 46 mmHg (35-45) H 01/18/17 08:41 ABG pO2 74 mmHg (85-104) L 01/18/17 08:41 ABG O2 Saturation 94 % (95-98) L 01/18/17 08:41 PT/INR, D-dimer PT 13.4 Seconds (9.4-12.1) H 01/18/17 04:10 - VTE Documentation of Mechanical Device: Graduated compression elastic hosiery Consult Discharge Plan - Plan Referrals: Abdi Mederos, RAYON TESTER [Advanced Practice Nurse] - 02/26/17 1:00 pm NONE,PCP [Primary Care Provider] - Rosendo Figueroa MD [Partnered Physician] - 03/08/17 1:15 pm Júnior Graham MD [Non-Partnered Physician] - 02/15/17 9:15 am (Sent email to Stacey Ross to see if we can get this appointment sooner)
[2017-01-21] MEDS: *HR* OxyCODONE/APAP 5/325 TABLET PO PRN ×4 (03:00→16:41)
[2017-01-21] MEDS: *HR* Heparin 5,000 UNIT/ML VIAL SQ SCH ×2 (06:26→18:07)
--- NOTE | 2017-01-21 07:26 | Cardiothoracic Progress Note ---
Date of Encounter: 01/21/17 Time of Encounter: 07:25 - Assessment and plan (1) CAD (coronary artery disease) Current Visit: Yes Status: Acute The patient is recovering well from her CABG3. She will continue ambulating the hallways today. The assessment and plan as outlined above was discussed with the patient and/or family members who expressed understanding and agreement. All questions were answered. Qualifiers: Coronary Disease-Associated Artery/Lesion type: [place] artery [place] vs. transplanted heart: [place] heart Associated angina: with stable angina Qualified Code(s): I25.118 - Atherosclerotic heart disease of [place] coronary artery with other forms of angina pectoris (2) NSTEMI (non-ST elevated myocardial infarction) Current Visit: Yes Status: Acute The assessment and plan as outlined above was discussed with the patient and/or family members who expressed understanding and agreement. All questions were answered. - Subjective Procedure(s) Performed: POD#4 S/P CABG3 Interval history: The patient is recovering well from her CABG3. She is sitting in a chair at the bedside and has no complaints. Vital Signs, Last 4 Hours Resp Pulse Ox 01/21/17 03:42 18 902 Oxgyen Flow Rate Oxygen Flow Rate (LPM) 3.5 Weight 01/19/17 01/20/17 01/21/17 23:59 23:59 23:59 Weight 76.4 kg 75.9 kg 75.835 kg - Physical Examination General: Conversant, No Apparent Distress Neck: No JVD, Normal carotid pulses Cardiac: Reg Rate and Rhythm, Normal S1 and S2, No Murmur Incision: No signs of infection, Dry/intact dressing Sternum: Stable Lungs: Normal Breath Sounds, No Wheeze, Rales, Rhonchi Neuro: Alert and responsive, No focal deficits noted Vascular: Normal capillary refill Musculoskeletal: No Chest Wall Tenderness Extremities: No Clubbing, No Cyanosis, No Edema - Labs 01/20/17 04:40 01/20/17 04:40 - VTE Documentation of Mechanical Device: Graduated compression elastic hosiery Consult Discharge Plan - Plan Referrals: Abdi Mederos CNP [Advanced Practice Nurse] - 02/26/17 1:00 pm NONE,PCP [Primary Care Provider] - Rosendo Figueroa MD [Partnered Physician] - 03/08/17 1:15 pm Júnior Graham MD [Non-Partnered Physician] - 02/15/17 9:15 am (Sent email to Stacey Ross to see if we can get this appointment sooner)
[2017-01-21] MEDS: Furosemide 20 MG/2 ML VIAL IVP SCH ×2 (07:38→16:41)
[2017-01-21] MEDS: Chlorhexidine Rinse 15 ML MOUTHWASH MM SCH ×2 (07:38→20:45)
[2017-01-21] MEDS: Acetaminophen 325 MG TABLET PO PRN (20:44)
[2017-01-22] MEDS: Acetaminophen 325 MG TABLET PO PRN ×2 (04:01→17:19)
[2017-01-22] MEDS: *HR* Heparin 5,000 UNIT/ML VIAL SQ SCH ×2 (05:57→17:20)
[2017-01-22] MEDS: Chlorhexidine Rinse 15 ML MOUTHWASH MM SCH ×2 (07:58→21:04)
--- NOTE | 2017-01-22 09:52 | Cardiothoracic Progress Note ---
Date of Encounter: 01/22/17 Time of Encounter: 09:51 - Assessment and plan (1) Elevated troponin Current Visit: Yes Status: Acute We will work on getting her off oxygen today. I will place her on low-dose Lasix. Hopefully, she can be discharged tomorrow. - Subjective Interval history: The patient has no complaints and is anxious to be discharged. Vital Signs, Last 4 Hours Temp Pulse Resp BP Pulse Ox 01/22/17 07:51 73 01/22/17 07:43 18 92 01/22/17 07:15 98.6 F 77 16 125/69 93 Oxgyen Flow Rate Oxygen Flow Rate (LPM) 3 Clinical Data, last 8 Hours Output, Urine Amount 180 Weight 01/20/17 01/21/17 01/22/17 23:59 23:59 23:59 Weight 75.9 kg 75.835 kg 76.4 kg - Labs 01/20/17 04:40 01/20/17 04:40 - VTE Documentation of Mechanical Device: Graduated compression elastic hosiery Consult Discharge Plan - Plan Referrals: Abdi Mederos CNP [Advanced Practice Nurse] - 02/26/17 1:00 pm NONE,PCP [Primary Care Provider] - Rosendo Figueroa MD [Partnered Physician] - 03/08/17 1:15 pm Júnior Graham MD [Non-Partnered Physician] - 02/15/17 9:15 am (Sent email to Stacey Ross to see if we can get this appointment sooner)
[2017-01-22] MEDS ORDERED: Mag Hydrox/Al Hydrox/Simeth 30 ML UDC PO PRN (10:00)
[2017-01-22] MEDS: Furosemide 20 MG/2 ML VIAL IVP SCH ×2 (17:18)
[2017-01-23] MEDS: Acetaminophen 325 MG TABLET PO PRN (04:12)
[2017-01-23] MEDS: *HR* Heparin 5,000 UNIT/ML VIAL SQ SCH (05:52)
[2017-01-23 06:04] LABS: Basophils % 0.4 %; Eosinophils # 0.2 K/mcL (0.0-0.6); Eosinophils % 2.4 %; Hematocrit 26.9 % (35.3-44.9); Hemoglobin 8.9 g/dL (11.5-15.4); Immature Granulocytes % 1.1 % (0-4); Lymphocytes # 1.4 K/mcL (0.6-4.6); Lymphocytes % 16.6 %; Mean Corpuscular HGB Conc 33.1 g/dL (31.6-35.5); Mean Corpuscular Hemoglobin 31.3 pg (28.0-33.3); Mean Corpuscular Volume 94.7 fL (83.0-100.0); Mean Platelet Volume 10.1 fL (9.4-12.4); Monocytes # 0.8 K/mcL (0.0-1.3); Monocytes % 9.9 %; Neutrophils # 5.9 K/mcL (1.6-8.9); Nucleated Red Blood Cells 0.5 /100 WBC (0); Platelet Count 302 K/mcL (140-400); Red Blood Count 2.84 M/mcL (3.82-4.97); Red Cell Distribution Width 13.2 % (11.5-14.5); Segmented Neutrophils % 69.6 %
[2017-01-23 06:16] LABS: BUN/Creatinine Ratio 19 (6-26); Blood Urea Nitrogen 11 mg/dL (7-20); Calcium 9.1 mg/dL (8.6-10.8); Carbon Dioxide 28 mEq/L (19-29); Chloride 100 mEq/L (98-109); Glucose 95 mg/dL (70-99); Osmolality,Calculated 281 (280-300); Potassium 3.7 mEq/L (3.5-4.5); Sodium 136 mEq/L (136-145); eGFR For African Americans > 60 (> 60); eGFR For Non-African Americans > 60 (> 60)
[2017-01-23 07:27] VITALS: BP 119/74
[2017-01-23] MEDS: Chlorhexidine Rinse 15 ML MOUTHWASH MM SCH (08:04)
[2017-01-23] MEDS: Furosemide 20 MG/2 ML VIAL IVP SCH (08:05)
--- NOTE | 2017-01-23 09:45 | Discharge Summary ---
Date of Encounter: 01/23/17 Time of Encounter: 09:44 - Discharge Diagnosis (1) CAD (coronary artery disease) Priority: Primary Status: Acute Qualifiers: Coronary Disease-Associated Artery/Lesion type: [place] artery [place] vs. transplanted heart: [place] heart Associated angina: with stable angina Qualified Code(s): I25.118 - Atherosclerotic heart disease of [place] coronary artery with other forms of angina pectoris (2) NSTEMI (non-ST elevated myocardial infarction) Priority: Secondary Status: Acute - Discharge Medications Prescriptions: OxyCODONE/APAP 5/325 [Percocet 5/325 MG] 1 each PO Q4HR PRN #50 tab PRN Reason: Severe Pain Atorvastatin [Lipitor] 80 mg PO HS #30 tab Metoprolol [Lopressor] 50 mg PO BID #60 tab Home Medications: Aspirin [Lo-Dose Aspirin EC] 81 mg PO DAILY 01/12/17 [History] Atorvastatin [Lipitor] 80 mg PO HS #30 tab 01/23/17 [Rx] Metoprolol [Lopressor] 50 mg PO BID #60 tab 01/23/17 [Rx] OxyCODONE/APAP 5/325 [Percocet 5/325 MG] 1 each PO Q4HR PRN #50 tab 01/23/17 [Rx ] Allergies/Adverse Reactions: Allergies No Known Allergies Allergy (Verified 01/12/17 09:41) Date of admission: 01/12/17 11:18 Primary care physician: PCP NONE Consults: 01/12/17 13:14 Consult to Cardiothoracic Surgery [CONS] Routine Consulting Provider: Cardiothoracic Surgery [place] Reason for Consult: eval for CABG Call Completed: Yes 01/17/17 13:12 Consult to Cardiac Rehabilitation-Phase1 [CONS] Routine Comment: Reason for Consult: Post open heart Call Completed: Yes Consult to Ticket Clerk [CONS] Routine Reason for SW Consult: open heart Procedure(s) Performed: 1. Cardiac catheterization performed January 12, 2017. 2. CABG 3 (ARCE to LAD, SVG to OM1, SVG to OM 2) performed January 17, 2017. 3. Endoscopic vein harvesting, greater saphenous vein from right lower extremity performed January 17, 2017. Discharging clinician: Alesia Farr Anticipated date of discharge: 01/23/17 - Patient Status Disposition: Home, Self-Care Condition: Good Functional capacity at discharge: independent ambulation Overall status at discharge: patient is progressing back to baseline - Discharge Instructions Follow Up With: Abdi Mederos CNP [Advanced Practice Nurse] - 02/26/17 1:00 pm Rosendo Figueroa MD [Partnered Physician] - 03/08/17 1:15 pm Júnior Graham MD [Non-Partnered Physician] - 01/30/17 10:15 am () - Diet and Activity Activity: sternal precautions, no driving for four weeks, no lifting greater than 10 pounds for eight weeks Diet: low fat, low cholesterol - Hospital Course Hospital course: Ms. Oconnor is a 66 year old lady who began experiencing exertional, substernal chest pain on January 11, 2017. Initially the episode occurred at work and then subsided. She had a recurrent episode on the evening prior to [place]. At this time the pain was located in the left parasternal region and radiated to the back and neck. The patient was evaluated [facility] emergency department and was treated medically with Brilinta and nitroglycerin. She underwent urgent cardiac catheterization was found to have severe two- vessel CAD. She was recommended for CABG. The patient underwent CABG3 on January 16, 2017. Her postoperative course was uncomplicated. was ambulating without complaints of substernal chest pain or shortness of breath. She was discharged home on POD #6. - Time Spent with Patient Total time spent providing and/or coordinating discharge services: Physical Examination Vital Signs, Last 4 Hours Temp Pulse Resp BP Pulse Ox 01/23/17 08:05 78 93 01/23/17 07:40 16 119/74 90 01/23/17 07:26 97.9 F 78 18 119/74 89 General: Conversant HEENT: Atraumatic, Normocephaly, Trachea midline Neck: No JVD, Normal carotid pulses Cardiac: Reg Rate and Rhythm, Normal S1 and S2, No Murmur Lungs: Normal Breath Sounds, No Wheeze, Rales, Rhonchi Neuro: Alert and responsive, No focal deficits noted Vascular: Normal capillary refill Abdomen: Soft, Non-tender Skin: No rashes noted on visualized skin Extremities: No Clubbing, No Cyanosis, No Edema Open Heart Registry Aspirin Cont/Prescribed at DC: Yes Beta Ai Cont/Prescribed at DC: Yes Statin Cont/Prescribed at DC: Yes SIDNEY/ARB Cont/Prescribed at DC: Not indicated (LVEF greater than 50%.) - VTE Documentation of Mechanical Device: Graduated compression elastic hosiery
--- NOTE | 2017-01-24 12:57 | Electrocardiograph Report ---
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
--- NOTE | 2017-01-30 14:01 | Invasive Diagnostic Lab ---
Name: Le Oconnor Date of Study: 01/12/2017 Date: 1950 Ht: 150.0 cm /59.1 in Medical Record#: [id number] Age: 66 Wt: 72.7 kg / 160.28 lb Account/Order#: [id number] Gender: Female BSA: 1.68 Order #: [id number] Fluoro Dose: 158 mGy BMI: 32.31 Procedure Physician: Singh Villarreal DO Referring MD: Referring MD: Procedures Performed: LEFT HEART CATH Indications: Non-Stemi Impressions: There is severe three vessel coronary artery disease. The left ventricle is normal and has normal contractility EF 65% Recommendations: Optimal medical therapy of patient's disease. Aggressive risk factor modification. Suggest patient have Elective coronary artery bypass surgery. History/Risk Factors: CVA thyroid disease Hypertension Dyslipidemia Procedure Access obtained in the right Femoral artery by percutaneous puncture Complications: None, None Contrast: Isovue 70ml Hemodynamics: Pressures Site Systolic/ A Wave Diastolic/ V Wave End Diastolic/ Mean HR LV 162 4 25 102 LV 187 -6 2 90 AO 164 88 120 90 AO 135 68 94 86 LV Ventriculography Ejection Method: LV Gram Ejection Fraction: 65% Wall Motion: [place] Anterobasal Normal Anterolateral Normal Apical: Normal Inferoapical Normal Inferobasal Normal Coronary Dominance: Left Lesion Findings/Interventions * Left Main Coronary Artery The LMCA is angiographically free of disease. * Left Anterior Descending There is a 80% stenosis in the Proximal LAD. There is a 90% stenosis in the Mid LAD. * Circumflex There is a 80% stenosis in the Proximal Circumflex. * Right Coronary Artery There is a 90% stenosis in the Mid RCA. Updated on 01/17/2017 10:11:14 AM Singh Villarreal DO electronically signed on 01/30/2017 1:55:48 PM with status of Final
== END 2017-01-23 11:58 | disposition home or self-care (01) | DRG 233 ==
LOC: 2NENU 09:35 → EMEROO 09:35 → SUATTDRO 11:18 → 2NENU 12:33 → ICNU 01-17 10:45 → 2NNU 01-19 10:14
PROVIDERS: ADMIT Internal Medicine; ATTEND Internal Medicine